=== PATIENT | male | born 1960 | race Caucasian/White ===

== ENCOUNTER 2019-01-07 14:45 | Emergency (ER) | payer OTHER ==
[~2019-01-07] VITALS: Ht 177.8 cm; Wt 72.6 kg
[2019-01-07 15:47] LABS: ABSOLUTE NEUTROPHILS 11.7 thou/uL (1.4-8.2); BASOPHILS 0.5 % (0.0-2.0); EOSINOPHILS 2.1 % (0.0-3.0); HEMATOCRIT 40.3 % (42.0-52.0); HEMOGLOBIN 13.6 gm/dL (14.0-18.0); LYMPHOCYTES 8.7 % (24.0-44.0); MCHC 33.7 g/dL (28.0-37.0); MCV 80.1 fL (80.0-100.0); MONOCYTES 7.9 % (1.0-8.0); PLATELET COUNT 394 thou/uL (150-400); POLYS 80.8 % (36.0-66.0); RBC 5.03 mil/uL (4.50-6.00); RDW 14.5 % (10.5-14.5); WBC 14.5 thou/uL (4.0-11.0)
[2019-01-07 16:04] LABS: CALCIUM 9.5 mg/dL (8.5-10.1); CREATININE 1.1 mg/dL (0.7-1.3)
[2019-01-07 16:08] LABS: ALBUMIN 3.3 g/dL (3.4-5.0); TOTAL BILIRUBIN 0.9 mg/dL (<0.1-1.0); TOTAL PROTEIN 8.8 g/dL (6.4-8.2)
[2019-01-07] MEDS ORDERED: NAPROSYN500 MG PO (17:04)
[2019-01-07] MEDS ORDERED: DOXYCYCLINE 10100 MG PO (17:04)
[2019-01-07 17:30] VITALS: BP 121/62
== END 2019-01-07 17:30 | disposition left against medical advice (07) ==
LOC: ER 14:45
PROVIDERS: Physician Assistant
DX: E11.621 Type 2 diabetes mellitus with foot ulcer (principal); L97.529 Non-pressure chronic ulcer of other part of left foot with unspecified severity; A41.9 Sepsis, unspecified organism; R65.20 Severe sepsis without septic shock; I10 Essential (primary) hypertension; Z86.73 Personal history of transient ischemic attack (TIA), and cerebral infarction without residual deficits; F17.210 Nicotine dependence, cigarettes, uncomplicated; Z88.8 Allergy status to other drugs, medicaments and biological substances

== ENCOUNTER 2019-01-08 12:05 | Inpatient (IN) | payer OTHER ==
[~2019-01-08] VITALS: Ht 177.8 cm; Wt 75.3 kg
[~2019-01-08 12:05] MED LIST: DOXYCYCLINE 10100 MG PO; NAPROSYN500 MG PO
[2019-01-08 12:06] VITALS: BP 136/71
[2019-01-08 12:31] LABS: RBC 5.26 mil/uL (4.50-6.00)
[2019-01-08 12:33] LABS: HEMATOCRIT 42.2 % (42.0-52.0); HEMOGLOBIN 14.1 gm/dL (14.0-18.0); MCH 26.9 pg (26.0-34.0); MCHC 33.5 g/dL (28.0-37.0); MCV 80.1 fL (80.0-100.0); RDW 14.5 % (10.5-14.5); WBC 24.5 thou/uL (4.0-11.0)
[2019-01-08 13:26] LABS: ABSOLUTE NEUTROPHILS 17.4 thou/uL (1.4-8.2); ATYPICAL LYMPHS 1 %
[2019-01-08 13:27] LABS: ANISOCYTOSIS SLIGHT; PLATELET COUNT 389 thou/uL (150-400)
[2019-01-08 13:28] LABS: CALCIUM 8.9 mg/dL (8.5-10.1); CREATININE 0.7 mg/dL (0.7-1.3); POTASSIUM 3.4 mmol/L (3.5-5.1)
[2019-01-08 13:33] LABS: ALBUMIN 2.4 g/dL (3.4-5.0); TOTAL BILIRUBIN 0.9 mg/dL (<0.1-1.0); TOTAL PROTEIN 7.4 g/dL (6.4-8.2)
[2019-01-08 14:05] VITALS: BP 139/61
--- NOTE | 2019-01-08 14:17 | NUR ---
FIRST ATTEMPT TO CALL REPORT-NURSE BUSY IN [facility] ROOM
[2019-01-08 17:18] LABS: INR 1.1; PROTIME 11.4 Seconds (9.3-11.4)
--- NOTE | 2019-01-08 18:26 | NUR ---
58 YO MALE ADMITTED FROM ED TO 350. A&OX4, L POST FOOT SWOLLEN, RED AND WARM TO TOUCH, PLANTER ASPECT OF FOOT HAS A DEEP DIABETIC ULCER. ORIENTED PT TO ROOM/ CALL LIGHT. IV PAIN MED AND ABX GIVEN. ORDERED PT A DINNER TRAY, WILL BE NPO AFTER MN.
[2019-01-08 19:46] VITALS: BP 151/82
[2019-01-09] VITALS (8 sets, daily range): BP systolic 145–166; BP diastolic 65–86
[2019-01-09 05:08] LABS: HEMATOCRIT 35.8 % (42.0-52.0); MCH 26.3 pg (26.0-34.0); MCHC 32.9 g/dL (28.0-37.0); MCV 79.8 fL (80.0-100.0); RBC 4.49 mil/uL (4.50-6.00); RDW 14.5 % (10.5-14.5)
[2019-01-09 05:11] LABS: HEMOGLOBIN 11.8 gm/dL (14.0-18.0); WBC 8.6 thou/uL (4.0-11.0)
[2019-01-09 05:21] LABS: CALCIUM 8.1 mg/dL (8.5-10.1); CREATININE 0.7 mg/dL (0.7-1.3)
--- NOTE | 2019-01-09 05:55 | NUR ---
FOLLOWING POC FOR PT WITH IVPB ANTIBIOTICS AND FLUIDS. DC'D COUPLE ORDERS OF FLUIDS DUE TO DUPLICATE NATURE. REMOVED DRESSING ON FOOT SO ULTRASOUND COULD BE COMPLETED AND REDRESSED. PT USES CALL LIGHT TO EXPRESS HIS NEEDS WHEN NEEDING PAIN MEDICATION. IV TEAM MIGHT WANT TO BE CONSULTED PT IS HARD STICK AND IV LOCATION IS IN [facility]. ORTHO CONSULT IS SCHEDULED FOR THIS AM. PT HAS BEEN NPO SINCE 2400.
[2019-01-09] MEDS ORDERED: LISINOPRIL40 MG PO (11:44)
[2019-01-09] MEDS ORDERED: CARVEDILOL12.5 MG PO (11:45)
[2019-01-09] MEDS ORDERED: NORVASC5 MG PO (11:45)
[2019-01-09] MEDS ORDERED: ALPHA LIPOIC A600 M1 PO (11:46)
[2019-01-09] MEDS ORDERED: SERTRALINE HCL25 M1 PO (11:47)
[2019-01-09] MEDS ORDERED: LIPITOR10 MG PO (11:47)
[2019-01-09] MEDS ORDERED: CLOPIDOGREL75 MG PO (11:50)
[2019-01-09] MEDS ORDERED: PROTONIX40 M1 PO (11:51)
[2019-01-09] MEDS ORDERED: HYDROXYZINE HCL25 M1 PO ×2 (11:52→11:53)
[2019-01-09] MEDS ORDERED: PAXIL10 MG PO (11:53)
--- NOTE | 2019-01-09 14:48 | NUR ---
INITIAL ASSESSMENT: SW reviewed chart and spoke with nursing and attending physician. Pt was admitted from home due to left foot ulcer. Ortho consulted. [facility]. Pt will have toe amputation and possible further debridement. SW met with pt at bedside. Introduced role of SW. Pt is alert/orientated x 4. Pt reports he lives at home with his . Pt's is currently out of town. Prior to admission, pt was independent with ADLs. No hx of HH services or SNF/Rehab placement. Pt confirms that he does not have health insurance. SW explained process for sending referral to [employer] to assist with Medicaid application and financial assistance paperwork. Pt does not have a PCP. SW will provide pt with Health Resource Guide and prescription discount card. CHAMP is following to assist as needed with discharge planning.
--- NOTE | 2019-01-09 14:53 | NUR ---
Patient admitted for diabetic foot wound, cellulitis, severe sepsis, osteomyelitis. Amputation scheduled for this evening. RD consult for wound. Chart was reviewed. Blood sugars controlled at home per patient report of sugars usually ranging from 120-140. Sugars have been uncontrolled recently due to not taking diabetic medication x3 weeks. NPO at this time. Patient at low nutritional risk, will follow up 01/13/19 for further assessment.
--- NOTE | 2019-01-09 18:53 | NUR ---
PATIENT IS CURRENTLY IN SURGERY FOR LEFT GREAT TOE AMPUTATION. HE IS ALERT ORIENTED X4. DID HAVE MEDICAITONS ADMINISTERED FOR PAIN. WILL CONT WITH PLAN OF CARE.
--- NOTE | 2019-01-09 23:15 | HC ---
[facility] [address] [place] [address] CONSULTATION Name: DOMINGA GREEN Room #: 350-P ADM IN M.R.#: [id number] Admission: 01/08/19 ������������������ Attend Phys: Preet Dalal MD Discharge: ������������������ Date of : 64 Report #: [id number] THIS REPORT FOR: //name// CC: [facility] physician/PCP Preet Dalal DATE OF SERVICE: 01/08/2019 REASON FOR CONSULTATION: I was asked to evaluate left diabetic foot infection. HISTORY OF PRESENT ILLNESS: The patient is a 58-year-old with history of diabetes and hypertension who has a known diabetic foot infection the patient states for the last 9 months. He first noticed a small callus in the region. This then developed into an ulcer. Over the last week, he has noticed marked worsening with erythema involving the second left toe and increased drainage along with pain. No fever, chills or sweats. No nausea, vomiting or diarrhea. He has been out of his diabetic treatment for last month for the patient could not afford his medications. He lives in [place] and was visiting his family in [place] and planning to live here. REVIEW OF SYSTEMS: Denies any cardiopulmonary, GI or complaints. He does have peripheral neuropathy. PAST MEDICAL HISTORY: Diabetes, stroke, pancreatitis and hypertension. MEDICATIONS: Naprosyn and doxycycline that were started yesterday. ALLERGIES: PROCAINE. FAMILY HISTORY: Noncontributory. SOCIAL HISTORY: He is a smoker of cigarettes. No significant alcohol intake. REVIEW OF SYSTEMS: Ten-point review was negative other than what is described above. PHYSICAL EXAMINATION: VITAL SIGNS: He is afebrile and hemodynamically stable. GENERAL: He is alert, cooperative and pleasant, in no acute distress. EYES: Without scleral icterus. MOUTH: Without mucositis. NECK: Supple. LUNGS: Clear. HEART: Regular without murmur. ABDOMEN: Soft and nontender. SKIN: Unremarkable with no rashes or decubitus other than what is described on [facility] [address] [place] [address] CONSULTATION Name: DOMINGA GREEN Room #: [address] [place] [address] IN M.R.#: [id number] Admission: 01/08/19 ������������������ Attend Phys: Preet Dalal MD Discharge: ������������������ Date of : 64 Report #: [id number] his extremity examination. No palpable adenopathy. EXTREMITIES: Left lower extremity had an ulceration to the plantar aspect of his second metatarsal head region. There was surrounding erythema and marked tenderness in this area. He had 1+ edema in the foot. There was erythema to the dorsum of his foot as well with swelling, erythema and some ecchymosis involving the left second toe. This whole area was very tender to palpation. He had decreased sensation in his toes. Pulses were palpable dorsalis pedis and posterior tibial. Strength in his upper and lower extremities was normal. LABORATORY STUDIES: Sodium 130, potassium 3.4, bicarbonate 23 and creatinine 0.7. Liver function test normal. Hemoglobin 14.1, WBC 24.5 and platelet count 389,000, 71% segs, 15% lymphs and 10% monocytes. Culture of the wound and blood are pending. MRI scan of the foot shows evidence of osteomyelitis involving the second metatarsal proximal and middle phalanx. There was a 2.5 cm gas filled fluid collection dorsum of the soft tissues at the level of second proximal phalanx consistent with an abscess. There is edema throughout the plantar musculature of the forefoot. IMPRESSION: A 58-year-old with underlying diabetes and peripheral vascular disease with diabetic foot infection and osteomyelitis of his second toe and metatarsal. This would typically be a polymicrobial infection. He does have pulses palpable in his feet; therefore, suspecting small vessel vascular disease. RECOMMENDATIONS: We will continue IV antibiotic therapy with vancomycin and Zosyn, pending culture results. Orthopedic surgery evaluation for debridement and suspected need for ray amputation. ��������������������������������������������� <ELECTRONICALLY SIGNED> ���������������������������������������� By: Jose Rafael Jiang MD ��������������������������������������������� 01/09/19 2315 1714 [id number] Jose Rafael Jiang MD /nt
[2019-01-10 05:35] VITALS: BP 140/63
[2019-01-10 05:38] LABS: HEMATOCRIT 36.5 % (42.0-52.0); MCH 26.2 pg (26.0-34.0); MCV 79.4 fL (80.0-100.0); RBC 4.6 mil/uL (4.50-6.00); RDW 14.1 % (10.5-14.5); WBC 8.4 thou/uL (4.0-11.0)
[2019-01-10 05:49] LABS: CALCIUM 8.1 mg/dL (8.5-10.1); CREATININE 0.7 mg/dL (0.7-1.3); POTASSIUM 3.1 mmol/L (3.5-5.1)
--- NOTE | 2019-01-10 06:40 | NUR ---
Arrived from surgery around 2009. Hydrocodone x1 tab given for pain with little relief of left foot/toe pain. Morphine IV given with good relief. He slept fair during the night then requested hydrocodone x2 tabs this am with better relief of pain. Left foot elevated with pillows and ice pack provided. Afebrile. IV on left thumb clotted off. New IV placed on left FA for IV ABT. Bed alarm for safety. Tolerated diet with no nausea or vomiting. VSS. Will continue to monitor.
--- NOTE | 2019-01-10 08:05 | O ---
[facility] [place] [address] [place] [address] OPERATIVE REPORT Name: DOMINGA GREEN Room #: 350-P ADM IN M.R.#: [id number] Admission: 01/08/19 ������������������ Attend Phys: Preet Dalal MD Discharge: ������������������ Date of : 64 Report #: [id number] THIS REPORT FOR: //name// CC: [facility] physician/PCP Preet Dalal DATE OF SERVICE: 01/09/2019 PREOPERATIVE DIAGNOSIS: Left foot second metatarsal osteomyelitis. POSTOPERATIVE DIAGNOSIS: Left foot second metatarsal osteomyelitis. PROCEDURE: Left foot second ray amputation. SURGEON: Sathya Song MD. ANESTHESIA: General. ESTIMATED BLOOD LOSS: Minimal. DRAINS: One Eureka drain was placed. COMPLICATIONS: There were no complications. DESCRIPTION OF PROCEDURE: The patient was brought to the operating room where he was placed under general anesthesia. Once under adequate general anesthesia, his left lower extremity was elevated and a tourniquet placed to 300 mmHg. A racquet shaped incision was made about the second toe with sharp dissection directly down to the proximal phalanx and metatarsal of the second toe. Exposure was made of the second metatarsal and a sagittal saw was then used to transect the second metatarsal. This was then elevated from the foot and sharply released from the surrounding soft tissue with a 15 blade. The toe and metatarsal were then subsequently removed completely. The wound was irrigated copiously and closed over a Eureka drain with 2-0 nylon suture in a simple stitch manner. Once complete, the wound was dressed with Xeroform, 4 x 4s, and a sterile soft compressive dressing was placed. Tourniquet was let down at 15 minutes. Toes were pink and warm with good capillary refill. There were no complications from the procedure. The patient tolerated the procedure well and was sent to recovery room without incident. ��������������������������������������������� <ELECTRONICALLY SIGNED> ���������������������������������������� By: Sathya Song MD ��������������������������������������������� 01/10/19 0805 25 40 Sathya Song MD /nt
--- NOTE | 2019-01-10 12:00 | NUR ---
SW reviewed chart and spoke with attending physician. Pt is POD #1 of toe amputation. Pt to have arteriogram per IR today. Awaiting cultures at this time. No weekend discharge anticipated. Pt may need assistance with medications at time of discharge. CHAMP is following to assist as needed with discharge planning.
[2019-01-10 15:47] VITALS: BP 110/63
--- NOTE | 2019-01-10 17:01 | NUR ---
WOUND CONSULT: PT. WAS SEEN TODAY BY DR. BIRCH AND MYSELF. PT. HAS SURGERY YESTERDAY BY DR. KRISHNA DUE TO OSTEO FROM A CHRONIC DIABETIC ULCER TO THE PLANTER SURFACE OF HIS LEFT FOOT. PT. HAD HIS LEFT FOOT 2ND TOE AMPUTATED AND THE INCSION LINE IS WELL APPROXIMATED AT THIS TIME. RECOMMENDATIONS: WOUND CARE TO LEFT FOOT: GENTLY CLEANSE AREA WITH WOUND CLEANSER OR NORMAL SALINE, APPLY AQUACEL AG TO WOUND BED, COVER WITH ABD, WRAP WITH KERLIX, SECURE WITH DG, COMPLETE CARES DAILY AND PRN DUE TO SOILAGE. PT. AND STAFF NURSE WERE INSTRUCTED ON PLAN OF CARE.
--- NOTE | 2019-01-10 17:52 | NUR ---
ASSUUMED PATIENT CARE AT 0700. A/O X4. PLEASEANT. PATIENT LISA BLE ARTERIOGRAM TODAY, BACK TO ROON AT 1400. RGIHT GROINE ACCESS NO HEMOTOMA, NO BLEEDING. WOUND CARE NURSE CHANGED LEFT FOOT DRESSING. PATIENT ON REGLUAR DIET. MED PAIN GIVEN NEEDS. PROGRESSING TOWARDS POC GOALS.
[2019-01-10 20:08] VITALS: BP 110/55
[2019-01-11 04:28] VITALS: BP 143/71
[2019-01-11 07:19] VITALS: BP 151/65
--- NOTE | 2019-01-11 07:38 | NUR ---
patient is alert and oreinted. patient is has boot for ambulation. patient is achs. patients lbm was the 12th. mirlax was given. patients groin site is clean dry and intact. patients pain is treated with pain medication wcm. patient is resting comfortabley in bed. patient is progressing to goals
[2019-01-11 15:00] VITALS: BP 120/67
--- NOTE | 2019-01-11 15:10 | NUR ---
WENT TO 3W AND BROUGHT PATIENT DOWN TO ROOM 222. REPORT GIVEN BY NURSE KASSIDY. RESUMED PATIENTS VANCOMYCIN IVPB. PATIENT SETTLED IN ROOM WITH CALL LIGHT AND BELONGINGS WITHIN REACH.
--- NOTE | 2019-01-11 17:12 | NUR ---
PATIENT TRANSFERED TO SENIOR SUITES. HE WAS ALERT ORIENTED X3. UP AND ABOUT WITH A WALKER. NO COMPLAINT OF PAIN NOTED. WILL CONT WITH PLAN OF CARE.
[2019-01-11 19:34] VITALS: BP 119/63
--- NOTE | 2019-01-12 04:54 | NUR ---
ASSUMED CARE OF PATIENT AT 1899. VSS. ASSESSMENT COMPLETED AT 2109 AND IS DOCUMENTED. PRN NORCO GIVEN X1 FOR C/O RIGHT FOOT PAIN WITH DESIRED EFFECT ACHIEVED. VANCO INFUSED INTO RIGHT FA PIV WITHOUT COMPLICATION. ZOSYN CURRENTLY INFUSING. PT SLEPT SOUNDLY THROUGHOUT THE NIGHT WITH NO ACUTE DISTRESS NOTED OR REPORTED. PT CALLS OUT APPROPRIATELY. BED LOCKED AND IN LOWEST POSITION. WCTM.
--- NOTE | 2019-01-12 05:05 | NUR ---
THIS NURSE AGREES WITH ASSESSMENT AND NOTES BY PERFUSIONIST ON THIS PATIENT.
[2019-01-12 06:54] LABS: HEMATOCRIT 34.9 % (42.0-52.0); HEMOGLOBIN 11.7 gm/dL (14.0-18.0); MCH 26.8 pg (26.0-34.0); MCHC 33.6 g/dL (28.0-37.0); MCV 79.7 fL (80.0-100.0); RBC 4.38 mil/uL (4.50-6.00); RDW 14.3 % (10.5-14.5)
[2019-01-12 07:14] LABS: CALCIUM 8.2 mg/dL (8.5-10.1); CREATININE 0.8 mg/dL (0.7-1.3); POTASSIUM 3.7 mmol/L (3.5-5.1)
[2019-01-12 07:45] VITALS: BP 146/83
--- NOTE | 2019-01-12 11:16 | NUR ---
ASSUMED CARE OF PATIENT THIS MORNING. PATIENT IS A&OX4. HE IS UP AD CAIN AND USES A WALKER FOR AMBULATING. PATIENT WEARS A HEEL BEARING BOOT ON HIS LEFT FOOT. PATIENT IS S/P 2ND TOE AMPUTATION ON 01/09/19, DRESSING IS CURRENTLY C/D/I. HE HAS TWO IV ACCESS SITES. ONE ON THE LEFT AC WHICH ZOSYN IS CURRENTLY RUNNING THROUGH AND THE OTHER IS ON THE R. FOREARM S.L. HE IS A DIABETIC, ACCUCHECK IS AC/HS. HE RECEIVED 4 UNITS OF INSULIN THIS MORNING FOR A GLUCOSE READING OF 241. STILL AWAITING PATIENT'S LAB CULTURES TO DETERMINE WHEN HE WILL BE DISCHARGED. PATIENT IS CURRENTLY RESTING IN BED WITH CALL LIGHT WITHIN REACH. HE CALLS OUT APPROPRIATELY FOR ASSISTANCE.
--- NOTE | 2019-01-12 14:14 | NUR ---
I AGREE WITH NURSING ASSESSMENT DONE BY SAMARA/STACY.
[2019-01-12 16:51] VITALS: BP 131/71
[2019-01-12 19:20] VITALS: BP 174/95
[2019-01-12 19:22] VITALS: BP 142/76
[2019-01-13 07:22] VITALS: BP 168/85
--- NOTE | 2019-01-13 09:51 | NUR ---
ASSUMED CARE OF PATIENT THIS MORNING. PATIENT IS A&OX4. HE IS UP AD CAIN. HE HAS A LEFT 2ND TOE AMPUTATION AND WEARS A BOOT. DRESSING TO THE LEFT FOOT IS C/D/I. HE ALSO HAS A DRESSING TO THE RIGHT GROIN C/D/I. HE HAS TWO IV'S ONE IN THE RIGHT AC SALINE LOCKED AND THE OTHER IN THE LEFT FOREARM. BREATH SOUNDS ARE CLEAR AND HE IS ON ROOM AIR. LAST BOWEL MOVEMENT WAS 01/12/19. NO ABNORMAL ASSESSMENT FINDINGS. PATIENT WILL NOT BE DISCHARGED YET, ADDITIONAL CULTURES ARE NEEDED FROM LEFT FOOT. PATIENT RECEIVED PAIN MEDICATION THIS MORNING FOR FOOT PAIN 06/04 AND REASSESSED THE PATIENT'S PAIN, HE WAS SLEEPING. PATIENT IS CURRENTLY RESTING IN BED WITH CALL LIGHT WITHIN REACH. PATIENT CALLS OUT APPROPRIATELY FOR ASSISTANCE.
--- NOTE | 2019-01-13 10:14 | NUR ---
Nutrition: pt admit with diabetic foot wound, cellulitis, sepsis, osteo. S/P 2nd toe amputation. BG usually controlled at home, 120-140 per pt but recently uncontrolled past several weeks due to not taking DM medication. Currently on heart healthy diet with BG 168-301, will add carb controlled. Good appetite reported, protein needs reviewed. Pt agreeable to Jony BID for wound healing. Continue low nutrition risk.
--- NOTE | 2019-01-13 16:08 | NUR ---
Following for d/c planning needs. Received order from physician to arrange IVAB outpatient at [facility]. Spoke with Director of Case Management and will await direction re: OP at [facility]. Pt states he lives in an extended stay motel and his family from [place] is paying for it. Pt is not working. Pt said he has transportation and would be able to come to the hospital daily for IVAB. Will remain available to assist as needed.
--- NOTE | 2019-01-13 16:18 | NUR ---
CONSULTED TO PLACE A PICC FOR PATIENT FOR ANTIBIOTICS POST DISCHARGE. THE PATIENT EXPRESSED CONFUSION TO HOW HE WAS GOING TO GET OUTPATIENT IV ANTIBIOTICS AFTER DISCHARGE. DISCUSSED CONCERNS WITH THE STAFF NURSE AND ARGON TESTER. THE PATIENT HAS 2 PERIPHERAL IV LINES FOR IV INFUSION AND WILL NOT BE DISCHARGED UNTIL CLARIFICATION HAS BEEN COMPLETED. ONCE IT IS CLARIFIED WE WILL RETURN TO PLACE PICC PRIOR TO DISCHARGE.
--- NOTE | 2019-01-13 16:35 | NUR ---
WOUND FOLLOW UP: PT. WAS SEEN TODAY BY DR. BIRCH AND MYSELF. WOUND IS CLINICALLY BETTER TODAY AND PT. IS IN GOOD SPIRITS. RECOMMENDATIONS: CONTINUE WITH CURRENT PLAN OF CARE. PT. AND STAFF NURSE WERE INSTRUCTED ON PLAN OF CARE.
[2019-01-13 18:41] VITALS: BP 147/76
--- NOTE | 2019-01-14 04:26 | NUR ---
PATIENT ALERT AND ORIENTED X4. C/O MILD PAIN BUT DOES NOT WANT ANYTHING FOR IT. ACCUCHECK WAS 272, RECIEVED 6 UNIT LISPRO INSULIN WELL 20 UNIT OF LANTUS. DRESSING ON L LOWER EXT D/I. SLEPT MOST OF NIGHT.
[2019-01-14 08:28] VITALS: BP 146/82
--- NOTE | 2019-01-14 08:32 | NUR ---
ASSUMED PT CARE AT 0700. ASSESSMENT COMPLETED AND IS CHARTED. PT AWAKE, ALERT/ORIENTED X4. REPORTS NO PAIN TO FOOT. NEUROVASCULAR ASSESSMENT INTACT TO LEFT FOOT. DRESSING IS CDI. NO NEW CONCERNS OR COMPLAINTS AT THIS TIME. WILL CONTINUE WITH CURRENT CARE.
--- NOTE | 2019-01-14 12:50 | NUR ---
CHAMP reviewed chart and spoke with nursing and attending physician. Pt is medically stable for discharge home. Pt will need IV abx for 4-6 weeks per ID. Order written for ertapenem daily. CHAMP discussed case with Director of Case Mgmt, who states she has been in contact with [facility] pharmacy. Pt may qualify for an assistance program for the ertapenem. Pt does not have a PICC line in yet. CHAMP met with pt at bedside to discuss discharge plan and possible need for outpatient IV abx. Pt is aware and agreeable with coming to [facility] if needed for outpatient infusion. Pt will be staying in a hotel when discharged, and states he may need transportation to the hotel. Awaiting input from ID at this time. CHAMP is following to assist as needed with discharge planning.
[2019-01-14 15:03] VITALS: BP 146/82
[2019-01-14] MEDS ORDERED: LIPITOR10 MG PO (15:13)
[2019-01-14] MEDS ORDERED: CLOPIDOGREL75 MG PO (15:13)
[2019-01-14] MEDS ORDERED: CARVEDILOL12.5 MG PO (15:17)
[2019-01-14] MEDS ORDERED: NORVASC5 MG PO (15:22)
[2019-01-14] MEDS ORDERED: LISINOPRIL40 MG PO (15:22)
[2019-01-14] MEDS ORDERED: LANTUS100 UNIT/M SUBQ (15:23)
[2019-01-14] MEDS ORDERED: PROTONIX40 M1 PO (15:23)
[2019-01-14] MEDS ORDERED: NOVOLOG100 UNIT/1 SUBQ (15:23)
[2019-01-14] MEDS ORDERED: ERTAPENEM1 GM IM (15:25)
[2019-01-14 15:35] VITALS: BP 146/82
[2019-01-14 15:38] VITALS: BP 146/82
--- NOTE | 2019-01-14 16:03 | NUR ---
RIGHT BASILIC VESSEL ACCESSED FOR 4 [place] SINGLE LUMEN PICC. LINE PRE-TRIMMED TO 43 CM AND ADVANCED TO THE ZERO RUDDY WITH NO RESISTANCE MET. UPPER ARM CIRCUMFERENCE ABOVE INSERTION SITE= 10 3/4". SHERLOCK MAGNET AND 3CG UNAVAILABLE FOR TIP TERMINATION CONFIRMATION. POST PROCEDURE CXR SHOWS 3-4 CM BELOW CRSITINA. GUIDEWIRE REMOVED, LINE FLUSHED AND INSERTION SITE DRESSED. REPORT GIVBEN TO Karli MARTELL RN.
[2019-01-14] MEDS ORDERED: HYDROCODONE-AP1 EAC6 PO (16:10)
[2019-01-14 16:13] VITALS: BP 146/82
--- NOTE | 2019-01-14 17:28 | NUR ---
DISCHARGE INSTRUCTIONS GIVEN. PICC LINE IN PLACE. DISCHARGED PT IN STABLE CONDITION TO HOME VIA WHEELCHAIR AND VOLUNTEER TRANSPORT.
[2019-01-15] MEDS ORDERED: ERTAPENEM1 GM IV (14:08)
--- NOTE | 2019-01-16 12:10 | PATH ---
[facility] [address] [place] [address] PATHOLOGY RPT PROCEDURE Name: MAURICE GREEN Room #: 222-P DIS IN M.R.#: [id number] ������������������ Admission: 01/08/19 ������������������ Date of : 64 Discharge: 01/14/19 Report #: [id number] Path Case #: [id number] [facility] Accession Number: [id number] . 01 Material submitted: . LEFT SECOND RAY AMPUTATION . 01 Clinical history: . Severe sepsis. . 02 Diagnosis: Left second ray, amputation: - Marked acute inflammation extending into subcutaneous tissue and underlying bone associated with osteonecrosis, consistent with acute osteomyelitis. - Margin viable and unremarkable. . (IUV:mml; 01/14/2019) QLM/01/14/2019 . 02 Electronically signed: . Trinidad Grimaldo MD, Pathologist NPI- [id number] . 01 Gross description: . Received in formalin labeled "Maurice Green, left second ray amputation" is a transmetatarsal toe amputation specimen which measures 11.6 x 2.6 x 2.3 cm. Skin is present on the distal third of the specimen, measuring over a 3.5 x 2.6 x 2.3 cm area. A palmer-white unremarkable nail is present measuring 1.2 x 0.8 x 0.2 cm. The toe skin is slightly palmer-murillo and discolored at the proximal aspect without a definitive lesion or ulceration. The skin and soft tissue resection margin is inked black. The soft tissue surrounding the proximal phalanx at the junction with the skin is slightly murillo-palmer discolored. The metatarsal bone and attached soft tissue are grossly unremarkable, with the proximal margin being smooth and consistent with a surgical resection margin (inked black). Can Top Setter sections are submitted as follows: A1 proximal margin, en face (decalcified) A2-A4 corporate sales representative sections of distal toe with skin (A4 decalcified) A4 corporate sales representative cross sections of proximal phalanx (decalcified) [place] 01/11/2019) SYC/SYC . 02 Pathologist provided ICD-10: M86.172, M87.872 . 02 [facility] [place] [address] PATHOLOGY RPT PROCEDURE Name: MAURICE GREEN Room #: 222-P DIS IN M.R.#: [id number] ������������������ Admission: 01/08/19 ������������������ Date of : 64 Discharge: 01/14/19 Report #: [id number] Path Case #: [id number] Specimen Comment: A courtesy copy of this report has been sent to Specimen Comment: [phone], . Specimen Comment: Report sent to / DR STROUD Specimen Comment: A duplicate report has been generated due to demographic updates. Performed at: [address], [place] [id number] MD Damion Richter MD Phone: [phone] Performed at: [address] [id number] MD Trinidad Grimaldo MD Phone: [phone]
== END 2019-01-14 17:29 | disposition home or self-care (01) | DRG 854 ==
LOC: ER 12:05 → EROBS 13:36 → 3W 14:36 → SICU 01-11 14:52 → ENTRNSPT 01-14 17:17 → SICU 01-14 17:29
PROVIDERS: Orthopaedic Surgery Foot and Ankle Surgery; Physician Assistant; ADMIT Hospitalist
PROC: 0Y6N0ZB Detachment at Left Foot, Partial 2nd Ray, Open Approach (ICD-10-PCS; principal; 2019-01-09)
PROC: B41D1ZZ Fluoroscopy of Aorta and Bilateral Lower Extremity Arteries using Low Osmolar Contrast (ICD-10-PCS; 2019-01-10)
PROC: B4181ZZ Fluoroscopy of Bilateral Renal Arteries using Low Osmolar Contrast (ICD-10-PCS; 2019-01-10)
PROC: B41C1ZZ Fluoroscopy of Pelvic Arteries using Low Osmolar Contrast (ICD-10-PCS; 2019-01-10)
PROC: B41B1ZZ Fluoroscopy of Other Intra-Abdominal Arteries using Low Osmolar Contrast (ICD-10-PCS; 2019-01-10)
PROC: 05HY33Z Insertion of Infusion Device into Upper Vein, Percutaneous Approach (ICD-10-PCS; 2019-01-10)
DX: A41.9 Sepsis, unspecified organism (principal); L03.116 Cellulitis of left lower limb; M86.8X7 Other osteomyelitis, ankle and foot; R65.20 Severe sepsis without septic shock; E11.69 Type 2 diabetes mellitus with other specified complication; E11.621 Type 2 diabetes mellitus with foot ulcer; I10 Essential (primary) hypertension; F17.210 Nicotine dependence, cigarettes, uncomplicated; L97.529 Non-pressure chronic ulcer of other part of left foot with unspecified severity; E11.51 Type 2 diabetes mellitus with diabetic peripheral angiopathy without gangrene; E11.42 Type 2 diabetes mellitus with diabetic polyneuropathy; E78.5 Hyperlipidemia, unspecified; Z82.49 Family history of ischemic heart disease and other diseases of the circulatory system; Z88.8 Allergy status to other drugs, medicaments and biological substances; Z86.73 Personal history of transient ischemic attack (TIA), and cerebral infarction without residual deficits; Z91.19 Patient's noncompliance with other medical treatment and regimen
CPT/HCPCS: 10879; 15002; 27000; 50010; 50101; 50386; 50951; 56525; 56526; 57091; 62110; 62900; 70005

== ENCOUNTER → 2019-01-15 | Outpatient (CLI) | payer OTHER ==
[~2019-01-15] MED LIST changes: +ALPHA LIPOIC A600 M1 PO; +CARVEDILOL12.5 MG PO; +CLOPIDOGREL75 MG PO; +ERTAPENEM1 GM IM; +ERTAPENEM1 GM IV; +HYDROCODONE-AP1 EAC6 PO; +HYDROXYZINE HCL25 M1 PO; +LANTUS100 UNIT/M SUBQ; +LIPITOR10 MG PO; +LISINOPRIL40 MG PO; +NORVASC5 MG PO; +NOVOLOG100 UNIT/1 SUBQ; +PAXIL10 MG PO; +PROTONIX40 M1 PO; +SERTRALINE HCL25 M1 PO
[2019-01-15 14:00] VITALS: BP 156/79
[2019-01-15 14:05] VITALS: BP 156/79
--- NOTE | 2019-01-15 14:05 | NUR ---
HERE FOR 1ST OUTPATIENT VISIT FOR DAILY IV ERTAPENEM. JUST DISMISSED LAST EVENING FROM THIS HOSPITAL. SEEMS TO GRASP UNDERSTANDING OF PLAN. REVIEWED WHAT TO EXPECT, NEED TO COME DAILY EVEN OVER THE WEEKEND, WILL SEE DR. RUCKER HERE IN THE CLINIC ON SUNDAY AND HAVE HIS LABS DRAWN ON THE SUNDAY PRIOR. REVIEWED INSTRUCTIONS TO KEEP THE PICC LINE DRESSING PROTECTED AND DRY. PT DID GET IT MOIST WITH BATHING SO DRESSING CHANGED TODAY. SITE LOOKS GOOD. LEFT FOOT HAS BEEN VERY PAINFUL AND HAS BLED THROUGH DRESSINGS AND STOCKING. WOUND CARE TEAM CAME TO SEE PT (BRIANDA MOSES AND DR. BIRCH) AND DRESSING CHANGE DONE BY THEM TODAY. JOSUÉ PLANS TO RETURN AGAIN TOMORROW TO DO DRESSING CHANGE. PT'S INNER LEFT FOREARM REDDENED, SLIGHTLY PAINFUL AND CORDING NOTED WHERE IV WAS DISCONTINUED YESTERDAY. AREA CIRCLED SO CAN BE EVALUATED DAILY. ENCOURAGED PT TO PLACE WARM, MOIST HEAT ON THIS AREA A FEW TIMES A DAY IF HE CAN. STATES HE CAN EASILY DO THIS. PT WAS OUT OF MOST MEDICATIONS. HE APPARENTLY HAS TRAVELED HERE FROM [place] IN SEARCH OF A JOB. HAS NO PCP HERE IN [place]. MOST OF THE SCRIPTS THAT CASE MANAGEMENT IS VOUCHING FOR HAVE BEEN FILLED AND PT TAKEN TO OUR OUTPATIENT PHARMACY BY THE VOLUNTEER TO PRODUCTION ENGINEER TRACK WHAT WAS FILLED. REMAINDER SHOULD BE AVAILABLE BY TOMORROW. PT DID SAY THAT HE HAS HIS INSULIN AND TOOK BOTH HIS LONG ACTING AND SHORT ACTING INSULIN'S PRESCRIBED AND IS CHECKING HIS BLOOD SUGARS ABOUT 3X DAILY. PT DENIES ANY FEVER/CHILLS, N/V/DIARRHEA OR ANY CONCERNS OTHER THAN PAIN IN HIS LEFT FOOT. SHOULD BE ABLE TO START ON HIS PAIN MED ONCE HE GETS HIS SCRIPTS PICKED UP. PT TOLERATED ERTAPENEM INFUSION WITHOUT INCIDENT. DISMISSED IN STABLE CONDITION. HAS A FRIEND IN [place] WILLING TO DRIVE HIM TO ALL APPTS. SCHEDULED TO RETURN HERE AGAIN IN THE MORNING. ALSO SCHEDULED PT'S VISIT WITH DR. TIPTON FOR 01/11 AT 0915.
== END ==
LOC: OPONC 09:38
DX: E11.69 Type 2 diabetes mellitus with other specified complication (principal); M86.8X7 Other osteomyelitis, ankle and foot; E11.628 Type 2 diabetes mellitus with other skin complications; L08.89 Other specified local infections of the skin and subcutaneous tissue
CPT/HCPCS: 95000

== ENCOUNTER → 2019-01-16 | Outpatient (CLI) | payer OTHER ==
[2019-01-16 12:11] VITALS: BP 142/84
--- NOTE | 2019-01-16 12:33 | NUR ---
IN FOR ERTAPENEM FOR LEFT DIABETIC FOOT WOUND, S/P LEFT 2ND TOE AMPUTATION, OSTEOMYELITIS. PATIENT WEARING OPEN TOE TO FOREFOOT BOOT. NO BLEEDING NOTED TO DRESSING. LASHA WITH WOUND CARE CHANGED DRESSING. WOUND LOOKS MUCH BETTER TODAY. PATIENT STATED HE STAYED OFF OF HIS FOOT LAST NIGHT. TOLERATED INFUSION WITHOUT INCIDENT. DENIED N/V, DIARRHEA, FEVER/CHILLS. PATIENT STATED HE ACCIDENTALLY SPILLED HIS PAIN PILLS IN THE SINK AND THEY GOT WET AND SOME OF THEM WENT DOWN THE DRAIN. PATIENT WENT DOWN TO PHARMACY TO SEE WHO PRESCRIBED THEM AND WILL HAVE PHARMACY CHECK ON A REFILL. TO RETURN TOMORROW FOR INFUSION. DISMISSED IN STABLE CONDITION. ALSO LASHA PROVIDED PATIENT WITH A WALKER.
== END ==
LOC: OPONC 06:20
DX: E11.69 Type 2 diabetes mellitus with other specified complication (principal); M86.8X7 Other osteomyelitis, ankle and foot; E11.628 Type 2 diabetes mellitus with other skin complications; L08.9 Local infection of the skin and subcutaneous tissue, unspecified
CPT/HCPCS: 95000

== ENCOUNTER → 2019-01-17 | Outpatient (CLI) | payer OTHER ==
[2019-01-17 10:05] VITALS: BP 127/71
[2019-01-17 10:30] LABS: HEMATOCRIT 36.4 % (42.0-52.0); MCH 26.4 pg (26.0-34.0); MCV 79.9 fL (80.0-100.0); RBC 4.55 mil/uL (4.50-6.00); RDW 14.7 % (10.5-14.5); WBC 7.7 thou/uL (4.0-11.0)
[2019-01-17 10:40] LABS: ALBUMIN 2.7 g/dL (3.4-5.0); POTASSIUM 4.4 mmol/L (3.5-5.1); TOTAL BILIRUBIN 0.4 mg/dL (<0.1-1.0); TOTAL PROTEIN 7.8 g/dL (6.4-8.2)
--- NOTE | 2019-01-17 11:00 | NUR ---
IN FOR DAILY INFUSION. REPORTS DOING WELL, TOLERATING INFUSIONS. DENIES NOTICING FEVER/CHILLS/SWEATS. NO N/V/DIARRHEA. EATING WELL. PAIN MUCH LESS. FEELS USE OF WALKER AND OFF LOADING IS HELPING A LOT. DID TELL ME THAT HE HAD A MISHAP WITH HIS HYDRODOCODONE BOTTLE AND THE PILLS FELL INTO THE SINK. STATES HE VISITED WITH THE PHARMACIST YESTERDAY WHO TOLD HIM HE WOULD NEED TO OBTAIN A NEW SCRIPT FROM DR. STROUD IF NEEDED. PT STATES PAIN IS SO MUCH BETTER HE IS GOING TO TRY TO GO WITHOUT FOR NOW. PICC LINE WITH EXCELLENT BLOOD RETURN, LABS DRAWN TODAY. PT HAS KEPT DRSG D/I. JOSUÉ, WOUND CARE NURSE, CAME BY TO CHANGE DRESSING ON L FOOT AND HAD DR. BIRCH TAKE A PEEK AT IT. PT IS SCHEDULED TO RETURN HERE AGAIN ON SUNDAY MORNING; WILL RECEIVE INFUSION AND SEE DR. RUCKER AT THAT TIME. TOLERATED TODAY'S INFUSION WITHOUT INCIDENT. DISMISSED IN STABLE CONDITION.
== END ==
LOC: OPONC 00:31
PROVIDERS: Specialist
DX: E11.69 Type 2 diabetes mellitus with other specified complication (principal); M86.8X7 Other osteomyelitis, ankle and foot
CPT/HCPCS: 95000

== ENCOUNTER → 2019-01-18 | Outpatient (CLI) | payer OTHER | LOC: OPONC 10:38 | DX: E11.69 Type 2 diabetes mellitus with other specified complication (principal); M86.8X7 Other osteomyelitis, ankle and foot | CPT/HCPCS: 95000 ==

== ENCOUNTER → 2019-01-20 | Outpatient (CLI) | payer OTHER ==
[2019-01-20 10:51] VITALS: BP 136/70
--- NOTE | 2019-01-20 11:31 | NUR ---
IN FOR DAILY ERTAPENEM INFUSION AND TO SEE DR. RUCKER. PATIENT STATED DOING OK. DENIED NAUSEA/VOMITING, FEVER/CHILLS, DIARRHEA. DR. RUCKER VISITED. TO CONTINUE THE SAME AND HE WILL SEE HERE IN CLINIC NEXT SUNDAY. TOLERATED INFUSION WELL WITHOUT INCIDENT. CHANGED PICC DRESSING. RECEIVED GOOD BLOOD RETURN FROM PICC LINE AND FLUSHED EASILY. LASHA, WOUND CARE NURSE CHANGED DRESSING TO LEFT FOOT. LASHA WILL CHANGE DRESSING EVERY --. TO RETURN TOMORROW. DISMISSED IN STABLE CONDITION.
== END ==
LOC: OPONC 00:41
DX: E11.69 Type 2 diabetes mellitus with other specified complication (principal); M86.8X7 Other osteomyelitis, ankle and foot; E11.65 Type 2 diabetes mellitus with hyperglycemia; E11.51 Type 2 diabetes mellitus with diabetic peripheral angiopathy without gangrene; E11.40 Type 2 diabetes mellitus with diabetic neuropathy, unspecified; Z91.19 Patient's noncompliance with other medical treatment and regimen
CPT/HCPCS: 95000

== ENCOUNTER → 2019-01-21 | Outpatient (CLI) | payer OTHER ==
[2019-01-21 11:53] VITALS: BP 134/74
--- NOTE | 2019-01-21 12:48 | NUR ---
IN FOR DAILY ERTAPENEM INFUSION. PATIENT SAW HIS SURGEON THIS MORNING AND SAID THE SURGEON IS PLEASED WITH HOW HIS FOOT IS HEALING. DRESSING TO LEFT FOOT C/D/I. DENIED PAIN, N/V, FEVER/CHILLS, DIARRHEA. RECEIVED GOOD BLOOD RETURN FROM PICC LINE. TOLERATED INFUSION WELL WITHOUT INCIDENT. TO RETURN TOMORROW AT 0900 FOR NEXT INFUSION. DISMISSED IN STABLE CONDITION.
== END ==
LOC: OPONC 01-19 13:48
DX: E11.69 Type 2 diabetes mellitus with other specified complication (principal); M86.8X7 Other osteomyelitis, ankle and foot
CPT/HCPCS: 95000

== ENCOUNTER → 2019-01-22 | Outpatient (CLI) | payer OTHER ==
[2019-01-22 13:45] VITALS: BP 116/62
--- NOTE | 2019-01-22 14:15 | NUR ---
HERE FOR DAILY IV ERTAPENEM. PT HAS BEEN VERY ACCOUNTABLE WITH APPTS AND KEEPING PICC DRESSING AND L FOOT DRESSING D/I. HOWEVER, HAVING SOME ISSUES WITH MANAGING HIS BLOOD SUGARS. DID SAY HE DID NOT EVEN CHECK HIS SUGARS TODAY BECAUSE HE HAD NOT YET TAKEN ANY INSULIN BECAUSE HE HAD RUN OUT OF NEEDLES. HE IS PLANNING TO PICK NEEDLES UP ON THE WAY HOME. STATES HE DOES HAVE A BOTTLE FOR EACH HIS LONG ACTING AND SHORT ACTING INSULINS. ALSO STATES HE HAS A SWEET TOOTH AND HAS TROUBLE AVOID SUGARY FOODS. TALKED WITH PT ABOUT IMPORTANCE OF BLOOD GLUCOSE MANAGEMENT FOR LONG TIME BENEFIT WELL HEALING BENEFIT. PT STATES HE DOESN'T HAVE A DOCTOR TO MANAGE HIS DIABETES. SPOKE WITH CASE MANAGEMENT WHO HAD ME REMIND PT ABOUT THE BROCURE HE WAS GIVEN WITH INFO FOR [facility]. STATES HE CAN JUST WALK IN, NO APPT NEEDED. PT STATES HE WILL LOOK FOR THAT WHEN HE GETS HOME TODAY AND WILL LET ME KNOW IF HE CANNOT FIND IT. PT WAS ALSO SEEN BY WOUND CARE NURSE, JOSUÉ, WHO CHANGED HIS FOOT DRESSING. SHE ALSO ENCOURAGED PT TO EAT WELL AND ADD PROTEIN FOR THE HEALING BENEFIT. PT VERBALIZES UNDERSTANDING. TOLERATED INFUSION TODAY WITHOUT INCIDENT. DENIES FEVER/CHILLS/SWEATS, NO N/V/DIARRHEA. DISMISSED IN STABLE CONDITION. SCHEDULED TO RETURN IN THE MORNING.
== END ==
LOC: OPONC 01:36
DX: E11.69 Type 2 diabetes mellitus with other specified complication (principal); M86.8X7 Other osteomyelitis, ankle and foot; E11.628 Type 2 diabetes mellitus with other skin complications; L08.9 Local infection of the skin and subcutaneous tissue, unspecified
CPT/HCPCS: 95000

== ENCOUNTER → 2019-01-23 | Outpatient (CLI) | payer OTHER ==
[2019-01-23 11:10] VITALS: BP 123/78
--- NOTE | 2019-01-23 11:40 | NUR ---
HERE FOR DAILY IV ERTAPENEM INFUSION. REPORTS FEELING OK, DOING OK PHYSICALLY. DENIES N/V/DIARRHEA, FEVER OR CHILLS. EATING WELL. STARTED PROTEIN SUPPLEMENT RECOMMENDED BY WOUND NURSE. HOWEVER, DID NOT END UP GETTING INSULIN NEEDLES SO HAS NOT TAKEN HIS INSULIN FOR AT LEAST A COUPLE DAYS IF I AM UNDERSTANDING CORRECTLY. STATES HE HAS ASKED HIS DTR TO SEND HIM SOME MONEY SO HE CAN AFFORD TO BUY SOME. ALSO NOT CHECKING HIS BLOOD GLUCOSE STATING HE IS AFRAID TO KNOW WHAT IT IS. THIS NURSE DID A FSBG TODAY TO CHECK PT'S GLUCOSE--167. EXPLORED WITH PT OPTIONS FOR GETTING INSULIN NEEDLES, CHECKING BLOOD GLUCOSE, TAKING INSULIN NEEDED AND GETTING GLUCOSE UNDER CONTROL. PT DID NOT FIND RESOURCE BOOKLET WITH INFO FOR FINDING A DOCTOR TO HELP HIM MANAGE HIS DIABETES. UNABLE TO REACH CASE MANAGEMENT IN TIME TO SEE PT TODAY BUT WILL ARRANGE FOR THEM TO VISIT WITH PT TOMORROW ABOUT RESOURCES, REFERRAL TO A PCP, UPDATE ON MEDICAID APPLICATION, ETC. PT SEEMS A BIT DOWN DISCOURAGED TODAY AND MOST APPRECIATIVE OF ANY ASSISTANCE OFFERED. TOLERATED INFUSION WITHOUT INCIDENT. DISMISSED IN STABLE CONDITION. SCHEDULED TO RETURN AGAIN IN THE MORNING.
== END ==
LOC: OPONC 01:21
DX: E11.69 Type 2 diabetes mellitus with other specified complication (principal); M86.8X7 Other osteomyelitis, ankle and foot; E11.628 Type 2 diabetes mellitus with other skin complications; L08.9 Local infection of the skin and subcutaneous tissue, unspecified
CPT/HCPCS: 95000

== ENCOUNTER → 2019-01-24 | Outpatient (CLI) | payer OTHER ==
[2019-01-24 11:21] LABS: HEMATOCRIT 37.1 % (42.0-52.0); HEMOGLOBIN 12.2 gm/dL (14.0-18.0); MCH 25.9 pg (26.0-34.0); MCHC 32.9 g/dL (28.0-37.0); MCV 78.7 fL (80.0-100.0); RBC 4.72 mil/uL (4.50-6.00); RDW 14.4 % (10.5-14.5); WBC 6.8 thou/uL (4.0-11.0)
[2019-01-24 11:30] VITALS: BP 144/66
[2019-01-24 11:38] LABS: ALBUMIN 2.8 g/dL (3.4-5.0); CALCIUM 9.2 mg/dL (8.5-10.1); CREATININE 0.8 mg/dL (0.7-1.3); POTASSIUM 3.9 mmol/L (3.5-5.1); TOTAL BILIRUBIN 0.4 mg/dL (<0.1-1.0); TOTAL PROTEIN 7.7 g/dL (6.4-8.2)
--- NOTE | 2019-01-24 11:54 | NUR ---
HERE FOR DAILY IV ERTAPENEM. LABS DRAWN TODAY WELL. IN CHECKING ON PT EARLIER THIS WEEK IT IS CLEAR THAT HE IS LACKING MONEY AND SOCIAL SUPPORT TO FULLY MANAGE HIS CARES. SOUNDS LIKE HE LIVES IN A TYPE OF COMMUNITY SITUATION, RENTING A ROOM, SHARING COMMON SPACE WITH OTHER FOLKS. CONSULTED CASE MANAGEMENT WHO CAME BY TODAY TO OFFER GREAT INFO ON HOW TO GET A PCP, ALL DIABETIC SUPPLIES, F/U ON MEDICAID AND DISABILITY APPS, ETC ALL OFFERED THROUGH [employer]. CASE MANAGEMENT UNABLE TO GET INSULIN SYRINGES TODAY BUT WILL BRING SOME TO PT ON SUNDAY UNTIL PT IS ABLE TO GET IN FOR [employer] APPT. PT STATES HE HAS ABOUT 4 SYRINGES AT THIS TIME THAT HE CAN USE. JOSUÉ WITH WOUND CARE CHANGED L FOOT DRESSING--SITE LOOKING SO MUCH BETTER. SHE WILL RETURN AGAIN ON SUNDAY. LOTTERY MANAGER CAME BY TO PRAY WITH PT AND GIVE HIM COMMUNION. THIS NURSE ALSO OFFERED EMOTIONAL SUPPORT WELL. PT INSTRUCTED TO COME TO THE ED FOR HIS WEEKEND INFUSIONS THEN RETURN HERE ON SUNDAY WHEN HE WILL SEE DR. RUCKER AND WOUND CARE, GET HIS INSULIN SYRINGES AND RECEIVE HIS INFUISON. DISMISSED IN STABLE CONDITION.
== END ==
LOC: OPONC 00:14
PROVIDERS: Specialist
DX: E11.69 Type 2 diabetes mellitus with other specified complication (principal); M86.8X7 Other osteomyelitis, ankle and foot
CPT/HCPCS: 95000

== ENCOUNTER → 2019-01-27 | Outpatient (CLI) | payer OTHER ==
[2019-01-27 09:34] VITALS: BP 155/78
--- NOTE | 2019-01-27 11:24 | NUR ---
IN FOR DAILY ERTAPENEM INFUSION. STATED FEELING WELL. DENIED N/V, FEVER/CHILLS, DIARRHEA. WOUND TO LEFT FOOT SLOWLY GETTING BETTER. ERYTHEMA NOTED TO TOP OF LEFT FOOT NEXT TO TOES. EDEMA LESSENING. SMALL AMOUNT OF DARK, DRIED BLOODY DRAINAGE. HAS A TRACT FROM TOP OF FOOT THROUGH TO BOTTOM OF FOOT. RATED PAIN #4. LASHA WITH WOUND CARE CAME AND CHANGED DRESSING. DR. RUCKER VISITED. TO CONTINUE THE SAME. PATIENT WEARING SHORT OPEN TOE BOOT ON LEFT FOOT AND USES WALKER FOR AMBULATION. TOLERATED INFUSION WELL WITHOUT INCIDENT. PICC SITE WNL AND DRESSING CHANGED. CLEMENTE PROVIDED SOME DIABETIC SUPPLIES TO LAST PATIENT UNTIL HE CAN SEE HIS NEW PCP. DISMISSED IN STABLE CONDITION.
== END ==
LOC: OPONC 01:43
DX: E11.69 Type 2 diabetes mellitus with other specified complication (principal); M86.8X7 Other osteomyelitis, ankle and foot; E11.42 Type 2 diabetes mellitus with diabetic polyneuropathy; M31.9 Necrotizing vasculopathy, unspecified
CPT/HCPCS: 95000

== ENCOUNTER → 2019-01-28 | Outpatient (CLI) | payer OTHER ==
[2019-01-28 11:43] VITALS: BP 159/86
--- NOTE | 2019-01-28 11:45 | NUR ---
IN FOR DAILY ERTAPENEM INFUSION. STATED DOING WELL WITH NO COMPLAINTS. TOLERATED INFUSION WELL WITHOUT INCIDENT. RECEIVED GOOD BLOOD RETURN FROM PICC LINE. SUKHWINDER SUMNER CM CAME AND PROVIDED PATIENT WITH INFORMATION RE; [place] [facility] [place] [facility]. PATIENT IN GOOD SPIRITS. DISMISSED IN STABLE CONDITION.
== END ==
LOC: OPONC 01:52
DX: E11.69 Type 2 diabetes mellitus with other specified complication (principal); M86.8X7 Other osteomyelitis, ankle and foot
CPT/HCPCS: 95000

== ENCOUNTER → 2019-01-29 | Outpatient (CLI) | payer OTHER ==
[2019-01-29 10:35] VITALS: BP 149/92
--- NOTE | 2019-01-29 10:35 | NUR ---
IN FOR DAILY ERTAPENEM INFUSION. REPORTS DOING WELL, FEELING WELL. DENIES ANY FEVER/CHILLS/SWEATS, N/V/DIARRHEA OR OTHER CONCERNS. STATES OBTAINED INSULIN SYRINGES SO IS NOW SET. SUKHWINDER WITH CASE MANAGEMENT CAME BY AGAIN TODAY TO BRING A PACKET WITH A TIMBER PACKER FOR APPT TRACKING AND OTHER MATERIALS TO HELP PT KEEP COMPLIANT AND BE SUCCESSFUL. JOSUÉ WITH WOUND CARE CAME BY TO CHANGE DRESSING. FOOT LOOKING SO MUCH BETTER. PT TOLERATED INFUSION WITHOUT INCIDENT. DISMISSED IN STABLE CONDITION. SCHEDULED TO RETURN AGAIN IN THE MORNING.
== END ==
LOC: OPONC
DX: E11.69 Type 2 diabetes mellitus with other specified complication (principal); M86.8X7 Other osteomyelitis, ankle and foot
CPT/HCPCS: 95000

== ENCOUNTER → 2019-01-30 | Outpatient (CLI) | payer OTHER ==
[2019-01-30 13:50] VITALS: BP 163/75
--- NOTE | 2019-01-30 13:55 | NUR ---
IN FOR DAILY ERTAPENEM INFUSION. STATED FEELING WELL PHYSICALLY. PATIENT VERY UPSET AND SAD TODAY. DID NOT TAKE HIS BLOOD SUGAR THIS MORNING OR TAKE HIS INSULIN. ACCUCHECK DONE AND WAS 257. PATIENT HAD NOT EATEN ANY BREAKFAST. PATIENT STATED HE WILL GO HOME AND TAKE HIS INSULIN PER HIS SLIDING SCALE, AND ALSO TAKE HIS LANTUS. TOLERATED INFUSION WELL WITH NO ADVERSE REACTION NOTED. TO RETURN TOMORROW FOR NEXT INFUSION. DISMISSED IN STABLE CONDITION.
== END ==
LOC: OPONC 03:11
DX: E11.69 Type 2 diabetes mellitus with other specified complication (principal); M86.8X7 Other osteomyelitis, ankle and foot
CPT/HCPCS: 95000

== ENCOUNTER → 2019-01-31 | Outpatient (CLI) | payer OTHER ==
[2019-01-31 11:23] LABS: HEMATOCRIT 37.9 % (42.0-52.0); HEMOGLOBIN 12.5 gm/dL (14.0-18.0); MCH 26.2 pg (26.0-34.0); MCHC 33.1 g/dL (28.0-37.0); MCV 79.2 fL (80.0-100.0); RBC 4.78 mil/uL (4.50-6.00); WBC 6.5 thou/uL (4.0-11.0)
[2019-01-31 11:40] VITALS: BP 159/80
--- NOTE | 2019-01-31 11:40 | NUR ---
HERE FOR DAILY IV ERTAPENEM INFUSION. REPORTS DOING WELL, FEELING WELL. DENIES N/V/DIARRHEA, FEVER/CHILLS OR OTHER CONCERNS. HOWEVER, VERY QUIET TODAY AND SEEEMS A BIT DOWN. PT STATES A FEW THINGS GOING ON AND WAS QUITE DISCOURAGED TODAY WHEN HE WENT TO SEE THE SURGEON IN FOLLOW UP BUT WAS NOT ABLE TO BE SEEN BECAUSE OF HIS FINANCIAL SITUATION. WOUND CARE TEAM HERE TODAY, JOSUÉ CHANGED THE DRESSING AND THE N.P., ELLYN ASSESSED THE WOUND AND FELT IT WAS TIME FOR THE SUTURES TO BE REMOVED SO HE DID REMOVE THE SUTURES. WOUND LOOKING SO MUCH BETTER. PT STATES THE OFFICE VISIT WAS FOR SUTURE REMOVAL AND IS HAPPY THIS COULD BE ACCOMODATED HERE TODAY. PT STATES HE WILL LET DR. RUCKER KNOW THAT HE COULD NOT SEE THE SURGEON DIRECTED. PT CONTINUING TO TAKE GOOD CARE OF PICC LINE, LEON IS D/I. PT TO REPORT TO THE ED OVER THE WEEKEND THEN RETURN HERE ON SUNDAY FOR HIS INFUSION, DRESSING CHANGE AND TO SEE DR. RUCKER. LABS DRAWN TODAY. PT REPORTS KEEPING BETTER CONTROL OF BLOOD GLUCOSE NOW THAT HE HAS ALL OF HIS NEEDED SUPPLIES. DISMISSED IN STABLE CONDITION. USES WALKER AND PLANS TO OFF LOAD MUCH POSSIBLE THIS WEEKEND.
[2019-01-31 11:43] LABS: ALBUMIN 3.2 g/dL (3.4-5.0); CALCIUM 8.8 mg/dL (8.5-10.1); CREATININE 0.8 mg/dL (0.7-1.3); TOTAL BILIRUBIN 0.6 mg/dL (<0.1-1.0)
== END ==
LOC: OPONC 00:31
PROVIDERS: Specialist
DX: E11.69 Type 2 diabetes mellitus with other specified complication (principal); M86.8X7 Other osteomyelitis, ankle and foot
CPT/HCPCS: 95000

== ENCOUNTER → 2019-02-03 | Outpatient (CLI) | payer OTHER ==
[2019-02-03 13:47] VITALS: BP 153/75
--- NOTE | 2019-02-03 13:51 | NUR ---
IN FOR DAILY ERTAPENEM INFUSION. STATED FEELING WELL WITH NO COMPLAINTS. TOLERATING MEDICATION WELL. DR. RUCKER VISITED. TO CONTINUE THE SAME WITH F/U VISIT NEXT SUNDAY. WOUND TO LEFT FOOT LOOKING MUCH BETTER. INCISION WELL APPROXIMATED WITH NO DRAINAGE. EDEMA MUCH LESS. SMALL AREA OF ERYTHEMA PROXIMAL TO AMPUTATION SITE ON TOP OF FOOT. SMALL AMOUNT OF DARK SEROSANGUINOUS DRAINAGE FROM TRAC HOLE. JOSUÉ WITH WOUND CARE APPLIED CLEAN DRESSING. DR. BIRCH VISITED ALSO. TO RETURN TOMORROW FOR INFUSION. DISMISSED IN GOOD CONDITION.
== END ==
LOC: OPONC 08:57
DX: E11.69 Type 2 diabetes mellitus with other specified complication (principal); M86.8X7 Other osteomyelitis, ankle and foot; E11.42 Type 2 diabetes mellitus with diabetic polyneuropathy; M31.9 Necrotizing vasculopathy, unspecified
CPT/HCPCS: 95000

== ENCOUNTER → 2019-02-04 | Outpatient (CLI) | payer OTHER ==
[2019-02-04 10:50] VITALS: BP 141/69
--- NOTE | 2019-02-04 11:05 | NUR ---
HERE FOR DAILY ERTAPENEM INFUSION. REPORTS DOING WELL, FEELING WELL. DENIES ANY N/V/DIARRHEA, FEVER OR CHILLS. EATING WELL. STATES BLOOD GLUCOSE IS FAIRLLY WELL CONTROLLED AND HE HAS ALL THE SUPPLIES HE NEEDS. NO PAIN. L FOOT DRESSED AND PT USING WALKING BOOT AND WALKER TO OFF LOAD WHEN UP. DOES VOICE ONE WORRY. STATES HE KEEPS FORGETTING THINGS AND IS WORRIED THAT HE MIGHT BE DEVELOPING SOME DEMENTIA. STATES HIS MOTHER HAD DEMENTIA AND HIS 59 YEAR OLD SISTER IS AFFECTED. ENCOURAGED PT TO BRING THIS UP AT HIS PCP APPT AT [facility] ON FEBRUARY 24. GAVE PT A PIECE OF PAPER WITH QUESTIONS FOR THE DOCTOR AND ENCOURAGED HIM TO JOT DOWN ANY QUESTIONS BETWEEN NOW AND THEN AND TAKE THIS WITH HIM TO THE APPT. QUESTION ABOUT DEMENTIA WRITTEN DOWN ON THIS SHEET. PT TOLERATING INFUSIONS WITHOUT INCIDENT. SCHEDULED TO RETURN AGAIN IN THE MORNING.
== END ==
LOC: OPONC 00:46
DX: E11.69 Type 2 diabetes mellitus with other specified complication (principal); M86.8X7 Other osteomyelitis, ankle and foot
CPT/HCPCS: 95000

== ENCOUNTER → 2019-02-05 | Outpatient (CLI) | payer OTHER ==
[2019-02-05 10:32] VITALS: BP 159/76
--- NOTE | 2019-02-05 11:15 | NUR ---
PT HERE FOR DAILY IV ERTAPENEM. VISIBLY SAD TODAY. ASKED PT WHAT WAS ON HIS MIND AND HE LET ME KNOW THAT HIS SON-IN-LAW TOOK HIS LIFE YESTERDAY. PT IS UNDERSTANDABLY UPSET. LISTENED TO HIS STORY AND CALLED YARD RIGGER BEN WHO DID COME BY TO OFFER A LISTENING EAR AND SUPPORT. PT ALSO VISITED BY JOSUÉ, WOUND CARE NURSE WHO NOT ONLY CHANGED HIS FOOT DRESSING BUT ALSO OFFERED SUPPORT. PT WITHOUT OTHER COMPLAINTS OR CONCERNS. TOLERATED INFUSION WITHOUT INCIDENT. DISMISSED IN STABLE CONDITION. WILL RETURN TOMORROW MORNING.
== END ==
LOC: OPONC 00:27
DX: E11.69 Type 2 diabetes mellitus with other specified complication (principal); M86.8X7 Other osteomyelitis, ankle and foot
CPT/HCPCS: 95000

== ENCOUNTER → 2019-02-06 | Outpatient (CLI) | payer OTHER ==
[2019-02-06 10:53] VITALS: BP 161/81
--- NOTE | 2019-02-06 11:25 | NUR ---
HERE FOR DAILY ERTAPENEM INFUSION. CONTINUES TO REPORT DOING WELL PHYSICALLY. NO N/V/DIARRHEA, FEVER/CHILLS. FOOT DRESSING D/I, DENIES PAIN. PICC SITE LOOKS GOOD. TOLERATED INFUSION WITHOUT INCIDENT. EMOTIONAL SUPPORT OFFERED PT DEALING WITH TRAGIC LOSS OF HIS SON-IN-LAW 2 DAYS AGO. DISMISSED IN STABLE CONDITION. SCHEDULED TO RETURN IN THE MORNING.
== END ==
LOC: OPONC 00:37
DX: E11.69 Type 2 diabetes mellitus with other specified complication (principal); M86.8X7 Other osteomyelitis, ankle and foot
CPT/HCPCS: 95000

== ENCOUNTER → 2019-02-07 | Outpatient (CLI) | payer OTHER ==
[2019-02-07 11:26] LABS: HEMATOCRIT 40.7 % (42.0-52.0); HEMOGLOBIN 13.7 gm/dL (14.0-18.0); MCH 26.6 pg (26.0-34.0); MCHC 33.6 g/dL (28.0-37.0); MCV 79.1 fL (80.0-100.0); RBC 5.14 mil/uL (4.50-6.00); RDW 15.2 % (10.5-14.5); WBC 8.2 thou/uL (4.0-11.0)
[2019-02-07 11:29] VITALS: BP 149/82
[2019-02-07 11:38] LABS: ALBUMIN 3.3 g/dL (3.4-5.0); CALCIUM 8.7 mg/dL (8.5-10.1); CREATININE 0.8 mg/dL (0.7-1.3); POTASSIUM 3.7 mmol/L (3.5-5.1); TOTAL BILIRUBIN 0.4 mg/dL (<0.1-1.0)
--- NOTE | 2019-02-07 12:14 | NUR ---
IN FOR DAILY ERTAPENEM INFUSION. WEEKLY LABS DRAWN FROM PICC LINE WITHOUT DIFFICULTY. TOLERATED INFUSION WELL WITHOUT INCIDENT. PICC SITE LOOKS GOOD. BRIANDA MOSES WITH WOUND CARE CHANGED DRESSING TO LEFT FOOT WOUND. WOUND HEALING NICELY. HOLE THROUGH FOOT CLOSING IN. SLIGHT EDEMA. SMALL PINK AREA ON TOP OF FOOT NEXT TO 2ND AND 3RD TOES. MINIMAL DRAINAGE. INCISION HEALED. PATIENT IN GOOD SPIRITS. LABS FAXED TO DR. RUCKER. WILL SEE DR. RUCKER HERE IN CLINIC ON SUNDAY. DISMISSED IN STABLE CONDITION.
== END ==
LOC: OPONC 03:29
PROVIDERS: Specialist
DX: E11.69 Type 2 diabetes mellitus with other specified complication (principal); M86.8X7 Other osteomyelitis, ankle and foot
CPT/HCPCS: 95000

== ENCOUNTER → 2019-02-10 | Outpatient (CLI) | payer OTHER ==
--- NOTE | 2019-02-10 11:59 | NUR ---
WOUND FOLLOW UP: PT. WAS SEEN TODAY IN THE INFUSION CLINIC FOR A DRESSING CHANGE. PT. WAS SEEN BY DR. RUCKER WELL. PT. STICHES WERE REMOVED 1 WEEK AGO. WOUND IS CLINICALLY BETTER. THE PLANTER SURFACE WOUND NO LONGER COMMUNICATES WITH THE INCSION. PT. HAS A MILD AMOUNT OF SEROSANGIOUS DRAIANGE PRESENT WITH DRESSING CHANGES BUT, NO ODOR. RECOMMENDATIONS: PER. DR. RUCKER HE WILL BE RE-EVULATED IN 1 WEEK TO DETERMINE CONTINUATION OF IV ANTIBOTICS. WOUND CARE TO LEFT FOOT: GENTLY CLEANSE, PACK WITH PURACOL AG, COVER INCSION LINE WITH AQUECEL AG, THEN SECURE WITH KERLIX AND DG, COMPLETE CARES M/W/F AND PRN. PT. AND STAFF NURSE WERE INSTRUCTED ON PLAN OF CARE.
[2019-02-10 13:15] VITALS: BP 146/71
--- NOTE | 2019-02-10 13:24 | NUR ---
IN FOR DAILY ERTAPENEM INFUSION. PATIENT STATED COULD NOT MAKE IT TO GET INFUSIONS OVER THE WEEKEND DUE TO TRANSPORTATION PROBLEMS. STATED FEELING WELL WITH NO COMPLAINTS OF N/V, FEVER/CHILLS, DIARRHEA. TOLERATED INFUSION WITHOUT INCIDENT. DR. RUCKER VISITED. TO CONTINUE THE SAME FOR ONE MORE WEEK. WILL FOLLOW UP AGAIN NEXT SUNDAY. JOSUÉ WITH WOUND CARE CHANGED DRESSING TO LEFT FOOT. WOUND LOOKING MUCH BETTER. STILL WITH MILD ERYTHEMA, EDEMA. HOLE IN FOOT FILLING IN. DOES NOT TRACK TO TOP OF FOOT NOW. INCISION HEALED. INSTRUCTED PATIENT WILL CONTINUE THE SAME FOR ONE MORE WEEK. CHANGED DRESSING TO PICC LINE. SITE WNL. GOOD BLOOD RETURN AND FLUSHED EASILY. DISMISSED IN STABLE CONDITION.
== END ==
LOC: OPONC 00:29
DX: E11.69 Type 2 diabetes mellitus with other specified complication (principal); M86.8X7 Other osteomyelitis, ankle and foot; E11.42 Type 2 diabetes mellitus with diabetic polyneuropathy; M31.9 Necrotizing vasculopathy, unspecified
CPT/HCPCS: 95000

== ENCOUNTER → 2019-02-11 | Outpatient (CLI) | payer OTHER ==
[2019-02-11 11:20] VITALS: BP 149/81
--- NOTE | 2019-02-11 11:20 | NUR ---
HERE FOR DAILY IV ERTAPENEM INFUSION. REPORTS DOING WELL. LOOKS GOOD. SPOKE BRIEFLY ABOUT OF HIS SON-IN-LAW. PT FEELS HE IS DEALING WITH THIS LOSS. OFFERED PASTORAL CARE VISIT IF HE EVER DESIRES. DENIES N/V/DIARRHEA, FEVER/CHILLS OR ANY OTHER CONCERNS. USES SPECIAL WALKING SHOE AND WALKER. FOOT DRESSING COVERED WITH PROTECTIVE SOCK. PICC LINE WITH EXCELLENT BLOOD RETURN. TOLERATED INFUSION WITHOUT INCIDENT. DISMISSED IN STABLE CONDITION. SCHEDULED TO RETURN AGAIN IN THE MORNING.
== END ==
LOC: OPONC 01:24
DX: E11.69 Type 2 diabetes mellitus with other specified complication (principal); M86.8X7 Other osteomyelitis, ankle and foot
CPT/HCPCS: 95000

== ENCOUNTER → 2019-02-12 | Outpatient (CLI) | payer OTHER ==
[2019-02-12 10:05] VITALS: BP 166/83
--- NOTE | 2019-02-12 11:25 | NUR ---
HERE FOR DAILY ERTAPENEM. SPRIRITS BRIGHTER TODAY. STATES HE FINALLY FEELS THAT HE REALLY IS GOING TO GET BETTER. VERY APPRECIATIVE OF THE CARE HE HAS RECEIVED FROM ALL OF THE TEAM. WOUND CARE NURSE CHANGED DRESSING AGAIN TODAY. FOOT HAS SEEN SIGNIFICANT IMPROVEMENT SINCE I SAW IT LAST WEEK. TOLERATED INFUSION WITHOUT INCIDENT. DISMISSED IN STABLE CONDITION. SCHEDULED TO RETURN AGAIN IN THE MORNING.
== END ==
LOC: OPONC 00:50
DX: E11.69 Type 2 diabetes mellitus with other specified complication (principal); M86.8X7 Other osteomyelitis, ankle and foot
CPT/HCPCS: 95000

== ENCOUNTER → 2019-02-13 | Outpatient (CLI) | payer OTHER ==
[2019-02-13 13:47] VITALS: BP 135/68
--- NOTE | 2019-02-13 13:49 | NUR ---
IN FOR DAILY ERTAPENEM INFUSION. STATED FEELING WELL. DENIES PAIN/FEVER/CHILLS/NAUSEA. RECEIVED GOOD BLOOD RETURN FROM PICC LINE AND FLUSHED EASILY. TOLERATED INFUSION WITHOUT INCIDENT. TO RETURN TOMORROW FOR THE SAME. DISMISSED IN STABLE CONDITION.
== END ==
LOC: OPONC 00:43
DX: E11.69 Type 2 diabetes mellitus with other specified complication (principal); M86.8X7 Other osteomyelitis, ankle and foot
CPT/HCPCS: 95000

== ENCOUNTER → 2019-02-15 | Outpatient (CLI) | payer OTHER | LOC: OPONC 06:51 | DX: E11.69 Type 2 diabetes mellitus with other specified complication (principal); M86.8X7 Other osteomyelitis, ankle and foot | CPT/HCPCS: 95000 ==

== ENCOUNTER → 2019-02-17 | Outpatient (CLI) | payer OTHER ==
[2019-02-17 09:44] LABS: HEMATOCRIT 37.3 % (42.0-52.0); HEMOGLOBIN 12.3 gm/dL (14.0-18.0); MCH 26.4 pg (26.0-34.0); MCHC 32.9 g/dL (28.0-37.0); MCV 80.3 fL (80.0-100.0); RBC 4.65 mil/uL (4.50-6.00); RDW 15.5 % (10.5-14.5); WBC 7.3 thou/uL (4.0-11.0)
[2019-02-17 10:19] LABS: ALBUMIN 3.2 g/dL (3.4-5.0); CALCIUM 8.8 mg/dL (8.5-10.1); CREATININE 0.7 mg/dL (0.7-1.3); POTASSIUM 3.7 mmol/L (3.5-5.1); TOTAL BILIRUBIN 0.4 mg/dL (<0.1-1.0); TOTAL PROTEIN 7.4 g/dL (6.4-8.2)
[2019-02-17 15:38] VITALS: BP 142/56
--- NOTE | 2019-02-17 15:41 | NUR ---
IN FOR DAILY ERTAPENEM INFUSION. STATED FEELING WELL WITH NO C/O FEVER/CHILLS, N/V, DIARRHEA. TOLERATED INFUSION WELL WITH NO ADVERSE REACTION NOTED. [place]UNIA LABS FROM PICC LINE WITHOUT DIFFICULTY. DR. RUCKER VISITED. WILL CONTINUE FOR 3 MORE DAYS AND THEN WILL CHANGE TO PO AUGMENTIN. JOSUÉ WITH WOUND CARE CHANGED DRESSING. PATIENT DID NOT GET HIS SUNDAY INFUSION HIS RIDE COULD NOT WAIT ON ED STAFF TO GET TO HIM. PATIENT STATED HE WAITED FOR 1 HOUR AND THEN HAD TO LEAVE. NOTIFIED DR. RUCKER ON ROUNDS. TO RETURN TOMORROW. DISMISSED IN STABLE CONDITION.
== END ==
LOC: OPONC
PROVIDERS: Specialist
DX: E11.69 Type 2 diabetes mellitus with other specified complication (principal); M86.8X7 Other osteomyelitis, ankle and foot; E11.42 Type 2 diabetes mellitus with diabetic polyneuropathy; M31.9 Necrotizing vasculopathy, unspecified
CPT/HCPCS: 95000

== ENCOUNTER → 2019-02-18 | Outpatient (CLI) | payer OTHER ==
[2019-02-18 13:20] VITALS: BP 149/80
--- NOTE | 2019-02-18 13:25 | NUR ---
IN FOR DAILY ERTAPENEM INFUSION. STATED FEELING WELL. DENIED PAIN, FEVER/CHILLS, N/V, DIARRHEA. TOLERATED INFUSION WITHOUT INCIDENT. CHANGED PICC DRESSING. SITE WNL. TO RETURN TOMORROW FOR NEXT INFUSION. DISMISSED IN STABLE CONDITION.
== END ==
LOC: OPONC 06:26
DX: E11.69 Type 2 diabetes mellitus with other specified complication (principal); M86.8X7 Other osteomyelitis, ankle and foot
CPT/HCPCS: 95000

== ENCOUNTER → 2019-02-19 | Outpatient (CLI) | payer OTHER ==
[2019-02-19 10:50] VITALS: BP 156/76
--- NOTE | 2019-02-19 10:50 | NUR ---
HERE FOR DAILY ERTAPENEM INFUSION. REPORTS DOING WELL. JOSUÉ, WOUND CARE NURSE CHANGED FOOT DRESSING. SITE LOOKS AMAZING. STILL ABLE TO PROBE A QTIP INTO WOUND ON BOTTOM OF FOOT BUT NO LONGER TUNNELS ALL THE WAY THROUGH. SHE WILL PLAN TO CHANGE DRESSING AGAIN ON SUN AND MON (WHEN PT RETURNS TO SEE DR. RUCKER). SPOKE WITH SUKHWINDER IN CASE MANAGEMENT TO MAKE ARRANGEMENTS TO HELP PT WITH FILLING HIS AUGMENTIN SCRIPT. FIRST 5 DAYS WILL BE FILLED AND VOUCHED FOR IN OUR PHARMACY AND REMAINING DAYS AT [facility] WHEN PT GOES FOR HIS VISIT ON 02/24. SCRIPT FOR THIS REMAINING BALANCE (AUGMENTIN 875 1 PO BID #[id number], NO REFILLS) WRITTEN BY DR. RUCKER AND WILL BE GIVEN TO PT TOMORROW. PT TOLERATED INFUSION WITOUT INCIDENT. DISMISSED IN STABLE CONDITION. SCHEDULED TO RETURN IN THE MORNING.
== END ==
LOC: OPONC 02:31
DX: E11.69 Type 2 diabetes mellitus with other specified complication (principal); M86.8X7 Other osteomyelitis, ankle and foot
CPT/HCPCS: 95000

== ENCOUNTER → 2019-02-20 | Outpatient (CLI) | payer OTHER ==
[2019-02-20 09:39] VITALS: BP 160/71
--- NOTE | 2019-02-20 09:43 | NUR ---
IN FOR LAST DOSE OF ERTAPENEM. STATED FEELING WELL. TOLERATED INFUSION WITHOUT INCIDENT. REMOVED PICC LINE WITH TIP INTACT. APPLIED GAUZE AND COBAN. SUKHWINDER SUMNER CM SUPPLIED PATIENT WITH 5 DAYS WORTH OF AUGMENTIN, AND PATIENT WILL GET THE REST OF HIS PRESCRIPTION FILLED WITH [facility] AT HIS APPT. ON SUNDAY. TO RETURN TOMORROW FOR DRESSING CHANGE PER WOUND CARE. DISMISSED IN STABLE CONDITION.
== END ==
LOC: OPONC 01:15
DX: E11.69 Type 2 diabetes mellitus with other specified complication (principal); M86.8X7 Other osteomyelitis, ankle and foot
CPT/HCPCS: 95000

== ENCOUNTER → 2019-02-21 | Outpatient (CLI) | payer OTHER ==
[2019-02-21 10:45] VITALS: BP 132/72
--- NOTE | 2019-02-21 10:45 | NUR ---
IN FOR WOUND CARE/DRESSING CHANGE L FOOT TODAY. REPORTS STARTING ON HIS AUGMENTIN THIS MORNING AND VERBALIZES THAT THIS IS TO BE TAKEN TWICE DAILY. HAS ENOUGH MED TO GO THROUGH SUNDAY AND HAS SCRIPT FOR REMAINING (#20) TO COMPLETE TREATMENT. HE WILL TAKE THIS SCRIPT WITH HIM WHEN HE GOES FOR HIS FIRST PCP APPT AT [facility]. THAT APPT IS SET UP FOR SUNDAY, FEB 24. WOUND CARE NURSE HERE TO CHANGE DRESSING TODAY--PLEASE SEE WOUND NOTE. ERYTHEMA MARKED WITH SHARPIE TO SEE IF IT WORSENS OR IMPROVES BY SUNDAY. REINFORCED NEED TO KEEP DRESSING DRY. PT AFRAID THAT HIS FOOT GOT WET WITH THE RAIN YESTERDAY. PT DISMISSED IN STABLE CONDITION POST DRESSING CHANGE. SCHEDULED TO RETURN HERE AGAIN ON SUNDAY TO SEE DR. RUCKER AND HAVE DRESSING CHANGED AGAIN.
--- NOTE | 2019-02-21 11:01 | NUR ---
WOUND CARE; PATIENT ARRIVED FOR AN OUTPATIENT WOUND DRESSING CHANGE TO THE LEFT FOOT TODAY. HIS SOCK AND THE DRESSING WAS WET AND WAS YELLOW TINGED AND SOILED. THE WOUND DEPTH WAS 1.5 CM AND WAS DIFFICULT TO PACK. A SMALL PIECE OF AQUACEL AG WAS PACKED INTO THE WOUND, COVERED WITH A FOAM DRESSING, WRAPPED WITH KERLIX, SECURED WITH DG. THE PERIWOUND HAD ERYTHEMA W/O WARMTH, BUT THE WOUNDBED WAS PAINFUL WHILE PACKING THE WOUND. THE PATIENT IS CHANGING TO AN ORAL ANTIBIOTIC STARTING TODAY. DISCUSSED OTHER S/S OF INFECTION, INCREASED PAIN, INCREASE DRAINAGE, FEVER ETC... PATIENT VERBILAZED UNDERSTANDIING AND WHEN TO SEEK MEDICAL CARE. RN PRESENT DURING ASSESSMENT AND TEACHING
== END ==
LOC: OPONC 07:40
DX: S91.302D Unspecified open wound, left foot, subsequent encounter (principal); E11.69 Type 2 diabetes mellitus with other specified complication; M86.8X8 Other osteomyelitis, other site; X58.XXXD Exposure to other specified factors, subsequent encounter
CPT/HCPCS: 91018

== ENCOUNTER → 2019-02-24 | Outpatient (CLI) | payer OTHER ==
[2019-02-24 09:05] VITALS: BP 130/73; BP 139/91
[2019-02-24 11:54] LABS: MCH 27.1 pg (26.0-34.0); MCHC 34.3 g/dL (28.0-37.0); MCV 79.1 fL (80.0-100.0); RBC 4.8 mil/uL (4.50-6.00); RDW 15.6 % (10.5-14.5); WBC 7.3 thou/uL (4.0-11.0)
[2019-02-24 12:12] LABS: ALBUMIN 3.7 g/dL (3.4-5.0); CALCIUM 9.3 mg/dL (8.5-10.1); CREATININE 0.7 mg/dL (0.7-1.3); POTASSIUM 4.1 mmol/L (3.5-5.1); TOTAL BILIRUBIN 0.5 mg/dL (<0.1-1.0); TOTAL PROTEIN 7.5 g/dL (6.4-8.2)
--- NOTE | 2019-02-24 15:04 | NUR ---
IN FOR CLINIC VISIT WITH DR. RUCKER. LEFT FOOT WOUND ALMOST HEALED. SINUS TRAC CLOSED. SLIGHTLY PINK TO TOP OF FOOT NEXT TO 2ND TOE. DENIED PAIN. NO DRAINAGE. PATIENT ACCIDENTALLY STEPPED IN SOME TAR AND GOT LEFT FOOT DIRTY. HE TRIED TO CLEAN IT HIMSELF. JOSUÉ WITH WOUND CARE CLEANED ALL THE TAR OFF. NO DRESSING APPLIED. JOSUÉ STATED OK TO WEAR A REGULAR SHOE NOW BUT TO KEEP FOOT UP IN THE EVENING AFTER WORKING. PATIENT STATED HIS ANTIBIOTIC PILLS WERE STOLEN HE LIVES IN A HOMELESS PRISON HOUSE AND THERE IS NO WAY TO LOCK THINGS UP. HE ONLY HAD 2 PILLS BEFORE IT WAS STOLEN. SUKHWINDER WITH CM ARRANGED FOR PATIENT TO HAVE HIS PRESCRIPTION FILLED HERE AND CM PAID FOR IT. TO RETURN NEXT SUNDAY FOR HOPEFULLY A LAST VISIT WITH DR. RUCKER. DISMISSED IN STABLE CONDITION.
== END ==
LOC: OPONC
PROVIDERS: Specialist
DX: E11.69 Type 2 diabetes mellitus with other specified complication (principal); M86.8X7 Other osteomyelitis, ankle and foot
CPT/HCPCS: 91016

== ENCOUNTER → 2019-02-26 | Outpatient (CLI) | payer OTHER ==
--- NOTE | 2019-02-26 12:00 | NUR ---
PT PRESENTED TO CLINIC WITH C/O INCREASED PAIN, REDNESS AND SWELLING L FOOT. WOUND CARE NURSE EVALUATED. NO OPENING IN THE WOUND. SEEN BY DR. RUCKER FOR QUICK EVALUATION. ADVISED PT TO ELEVATE FOOT, OFF LOAD MUCH POSSIBLE, USE WALKER, ADD COMPRESSION. PUT TUBIGRIP ON FOOT TO KNEE WITH SOCK OVER IT. PT USING 3/4 WALKING SHOE. STATES HE DID DO A FULL DAY'S WORK YESTERDAY (02/25) WHICH HE FEELS LED TO THE PROBLEM. STATES SWELLING IS BETTER THAN END OF DAY YESTERDAY. AGREES WITH PLAN. DISMISSED IN STABLE CONDITION. WILL RETURN ON SUNDAY TO SEE DR. RUCKER AGAIN.
== END ==
LOC: OPONC 16:40
DX: M86.8X7 Other osteomyelitis, ankle and foot (principal)
CPT/HCPCS: 91016

== ENCOUNTER → 2019-03-05 | Outpatient (CLI) | payer OTHER ==
[2019-03-05 09:59] LABS: HEMATOCRIT 41.2 % (42.0-52.0); HEMOGLOBIN 13.8 gm/dL (14.0-18.0); MCH 26.5 pg (26.0-34.0); MCHC 33.4 g/dL (28.0-37.0); MCV 79.5 fL (80.0-100.0); RBC 5.19 mil/uL (4.50-6.00); RDW 15.4 % (10.5-14.5); WBC 8.1 thou/uL (4.0-11.0)
[2019-03-05 10:13] LABS: ALBUMIN 3.5 g/dL (3.4-5.0); CALCIUM 9.1 mg/dL (8.5-10.1); CREATININE 0.8 mg/dL (0.7-1.3); POTASSIUM 3.4 mmol/L (3.5-5.1); TOTAL BILIRUBIN 0.8 mg/dL (<0.1-1.0); TOTAL PROTEIN 8.2 g/dL (6.4-8.2)
[2019-03-05 10:30] VITALS: BP 133/76
--- NOTE | 2019-03-05 10:30 | NUR ---
IN FOR FINAL F/U VISIT WITH DR. RUCKER FOR L 2ND TOE OSTEOMYELITIS. REPORTS DOING WELL, FEELING WELL. L FOOT IS SWOLLEN AND SLIGHTLY REDDENED BUT SWELLING DOES APPEAR TO DECREASE EVEN WITH MINIMAL TIME OF ELEVATION. WOUNDS ALL CLOSED. DENIES FEVER/CHILLS/SWEATS. EATING WELL. DENIES N/V/DIARRHEA. ON LAST COUPLE DAYS OF ORAL AUGMENTIN. HAS NEW PT APPT WITH [facility] ON 03/24 (MISSED HIS ORIGINAL 02/24 APPT D/T RIDE ISSUES). LABS DRAWN. PT SEEN BY DR. RUCKER THEN DISMISSED. NO RETURN APPT NEEDED AT THIS TIME.
== END ==
LOC: OPONC 00:28
PROVIDERS: Specialist
DX: E11.69 Type 2 diabetes mellitus with other specified complication (principal); M86.8X7 Other osteomyelitis, ankle and foot
CPT/HCPCS: 91016

== ENCOUNTER 2019-07-05 11:19 | Inpatient (IN) | payer OTHER ==
[~2019-07-05] VITALS: Ht 175.3 cm; Wt 70.7 kg
[2019-07-05] VITALS (22 sets, daily range): BP systolic 93–154; BP diastolic 46–71
[2019-07-05] MEDS ORDERED: COUMADIN 3 MG TA3 M1 PO (11:26)
[2019-07-05 11:41] LABS: ABSOLUTE NEUTROPHILS 14.7 thou/uL (1.4-8.2); BASOPHILS 0.2 % (0.0-2.0); EOSINOPHILS 0.3 % (0.0-3.0); HEMATOCRIT 32.5 % (42.0-52.0); HEMOGLOBIN 10.9 gm/dL (14.0-18.0); LYMPHOCYTES 8.1 % (24.0-44.0); MCH 27.6 pg (26.0-34.0); MCHC 33.5 g/dL (28.0-37.0); MCV 82.2 fL (80.0-100.0); MONOCYTES 7.8 % (1.0-8.0); PLATELET COUNT 286 thou/uL (150-400); POLYS 83.6 % (36.0-66.0); RBC 3.96 mil/uL (4.50-6.00); RDW 14.5 % (10.5-14.5); WBC 17.5 thou/uL (4.0-11.0)
[2019-07-05 11:50] LABS: CALCIUM 8.2 mg/dL (8.5-10.1); CREATININE 1.7 mg/dL (0.7-1.3); POTASSIUM 3.8 mmol/L (3.5-5.1)
[2019-07-05 11:53] LABS: APTT 28.5 Seconds (24.5-32.8); INR 1.1; PROTIME 11.1 Seconds (9.3-11.4)
[2019-07-05 14:39] LABS: URINE BILIRUBIN NEGATIVE (Negative); URINE BLOOD NEGATIVE (Negative); URINE CLARITY CLEAR; URINE COLOR YELLOW; URINE GLUCOSE-RANDOM* 3+ (Negative); URINE KETONES NEGATIVE (Negative); URINE LEUKOCYTES-REFLEX NEGATIVE (Negative); URINE NITRITE-REFLEX NEGATIVE (Negative); URINE PROTEIN (DIPSTICK) 2+ (Negative); URINE SPECIFIC GRAVITY 1.025 (1.005-1.035)
[2019-07-05 14:44] LABS: HYALINE CASTS 4-10 Moderate /LPF (None Seen); MUCUS >6 Heavy strn/LPF (None Seen); SQUAMOUS 0-3 Few /LPF (0-3)
[2019-07-05 14:45] LABS: FINE GRANULAR CASTS 0-3 Few /LPF (None Seen)
[2019-07-05 14:46] LABS: BACTERIA-REFLEX None Seen /HPF (None Seen); CRYSTALS None Seen /LPF (None Seen); URINE RBC 0-2 Rare /HPF (0-2); URINE WBC-REFLEX 0-5 Rare /HPF (0-5)
--- NOTE | 2019-07-05 18:17 | NUR ---
DR MAN'S ANSWERING SERVICE CONTACTED
--- NOTE | 2019-07-05 19:16 | NUR ---
PT ABLE TO ADJUST SELF IN BED. Q 2 HOUR TURNS NOT APPLICABLE.
[2019-07-06] VITALS (19 sets, daily range): BP systolic 113–160; BP diastolic 49–87
[2019-07-06 05:38] LABS: HEMATOCRIT 34.4 % (42.0-52.0); HEMOGLOBIN 11.4 gm/dL (14.0-18.0); MCH 27.4 pg (26.0-34.0); MCHC 33.1 g/dL (28.0-37.0); MCV 82.8 fL (80.0-100.0); RBC 4.16 mil/uL (4.50-6.00); RDW 14.6 % (10.5-14.5); WBC 9.8 thou/uL (4.0-11.0)
[2019-07-06 05:41] LABS: CALCIUM 8.2 mg/dL (8.5-10.1); CREATININE 0.8 mg/dL (0.7-1.3); POTASSIUM 3.5 mmol/L (3.5-5.1)
[2019-07-06 06:24] LABS: AMP/METHAMP POSITIVE (Negative); BARBITURATES Negative (Negative); BENZODIAZEPINES Negative (Negative); COCAINE Negative (Negative); METHADONE Negative (Negative); OPIATES Negative (Negative); PCP Negative (Negative)
--- NOTE | 2019-07-06 06:58 | NUR ---
END OF SHIFT SUMMARY: Pt has remained stable overnight. Neuro status unchanged; pupils 3-4 and DELICIA with brisk response, GCS = 15. No nausea, vomitting. Mild headache this a.m. but relieved with [place]. Still c/o of shoulder pain but that has also improved since beginning of shift. Monitor remains sinus rhythm; VS stable; voiding without difficulty.
--- NOTE | 2019-07-06 08:27 | NUR ---
0710-ASSUMMED CARE OF PT.TO CAT SCAN FULLY MONITOTED VIA BED.--VW 0825-MED FOR C/O BILAT SHOULDER PAIN,10/10 ON SCALE, & [place] 7/10 ON SCALE. PT STATES HE SMOKES THC ALMOST DAILY,LAST TIME 2-3 DAYS AGO.STATES LAST METH USE WAS 2-3 WEEKS AGO. NO RECALL OF EVENTS YESTERDAY.WOKE UP IN AMBULANCE.SETTLED FOR NAP.--VW
--- NOTE | 2019-07-06 10:49 | NUR ---
NEPHEWS AT BEDSIDE.INSTRUCTED TO KEEP VISIT SHORT. IN TO SEE.--VW
--- NOTE | 2019-07-06 11:13 | NUR ---
photophobia worse. med w morphine since hydrocodne not effective in controlling pain.no changes otherwise in neuro checks. lights off,room quiet. in.--vw
--- NOTE | 2019-07-06 11:43 | EKG ---
[place] [address] [facility] [place] [address] ELECTROCARDIOGRAM REPORT Name: NORMADOMINGA Room #: 247-P ADM IN M.R.#: [id number] Admission: 07/05/19 Attend Phys: Salvador Braga MD Discharge: Date of : 64 Report #: [id number] THIS REPORT FOR: //name// [facility] ED Test Date: 2019-07-05 Test Time: 12:41:26 Pat Name: DOMINGA GREEN Department: Room: [facility] Gender: M Kettle Loader: LOIDA : 1960 Requested By: Darío Malik Order Number: [id number] MD: Tad Calle Measurements Intervals [place] Rate: 80 P: 66 RI: 135 QRS: -27 QRSD: 100 T: 58 QT: 394 QTc: 455 Interpretive Statements Sinus rhythm Borderline left axis deviation RSR' in V1 or V2, probably normal variant Nonspecific ST segment abnormalities No previous ECG available for comparison Electronically Signed On 07-06-2019 11:43:23 CDT by Tad Calle [email or web address] <ELECTRONICALLY SIGNED> By: Tad Calle MD 07/06/19 1143 D: [id number] Tad Calle MD /BINU
--- NOTE | 2019-07-06 12:24 | NUR ---
PT DOES NOT WANT NEPHEWS VISITING AGAIN. ALSO NO INFORMATION TO BE GIVEN TO THEM.SECURITY CALLED & NEPHEWS ESCORTED OFF PROPERTY.FOUND SITTING IN PT'S TRUCK, AGAINST PT'S WISHES. PT HAS TILLMAN TO HIS TRUCK. IN.OK TO D/C HOME.CALL TO FOR DISCHARGE INSTRUCTIONS.--VW
--- NOTE | 2019-07-06 12:47 | NUR ---
PAGE TO RE:DISCHARGE OF PT.--VW
--- NOTE | 2019-07-06 12:49 | NUR ---
OK PER FOR PT TO BE DISCHARGED, BUT UP TO . PAGE TO .--VW
--- NOTE | 2019-07-06 12:53 | NUR ---
RETURNED PHONE CALL.IT WILL BE A FEW HRS B/4 HE CAN DISCHARGE PT. PT INFORMED.SECURITY UP TO SPEAK W PT.--VW
--- NOTE | 2019-07-06 13:16 | NUR ---
FINALLY ASLEEP.ALLOWED TO SLEEP W/O INTERRUPTION.--VW
--- NOTE | 2019-07-06 16:49 | NUR ---
1620-DISCHARGE INSTRUCTIONS GIVEN.PHOTO'S OF RT FOOT WOUNDS DONE.PT DISCH W PAINTER TUMBLING BARREL PER HIS REQUEST TO HIS TRUCK.OK'D TO DRIVE PER .--VW
[2019-07-07 01:05] LABS: GLYCOHEMOGLOBIN (HGB A1C) 9.3 % (4.8-5.6)
--- NOTE | 2019-07-07 10:34 | HC ---
[facility] [place] [address] CONSULTATION Name: DOMINGA GREEN Room #: 247-P [facility] IN M.R.#: [id number] Admission: 07/05/19 Attend Phys: Salvador Braga MD Discharge: 07/06/19 Date of : 64 Report #: [id number] THIS REPORT FOR: //name// CC: FAM unknown Salvador Braga REASON FOR CONSULTATION: Subdural hematoma. HISTORY OF PRESENT ILLNESS: The patient is a pleasant 59-year-old man who fell and struck the back of his head. He relates that he does not recall the fall in any detail. He says that he has had problems with hypotension. At this time, he denies any problem with headache. He denies any problems with numbness or weakness in upper and lower extremities. PAST MEDICAL HISTORY: Plantar foot ulcer, status post total resection last year, history of CVA, history of pancreatitis, hypertension, history of peripheral neuropathy. CURRENT MEDICATIONS: Insulin. ALLERGIES: PROCAINE. SOCIAL HISTORY: He does smoke. He does not use alcohol. He denies use of recreational drugs. REVIEW OF SYSTEMS: A 12-point was performed and was negative. PHYSICAL EXAMINATION: GENERAL: He is pleasant, alert and cooperative. He follows commands briskly. His speech was clear. HEENT: He was normocephalic. There was a small abrasion in the occipital region in the midline. NEUROLOGIC: I felt that his strength was 5/5 in upper and lower extremities bilaterally. On sensory examination, he was intact to light touch in the lower extremities bilaterally except for slight decrease in light touch involving both of his feet. His reflexes were absent throughout. There was full range of motion of upper and lower extremities bilaterally. LABORATORY DATA: I reviewed CT scans of the head at the time of admission and at this time, there is a high interhemispheric small focal collection of blood, which is consistent with a focal subdural hemorrhage adjacent to the falx and no other significant abnormality was detected. There was no change between the 2 scans. At this point, from my standpoint, it is safe for the patient to be discharged at least from the aspect of his intracerebral hemorrhage. He will need a followup scan in about [address] [address] CONSULTATION Name: DOMINGA GREEN Room #: 247-P [facility] IN [facility].#: [id number] Admission: 07/05/19 Attend Phys: Salvador Braga MD Discharge: 07/06/19 Date of : 64 Report #: [id number] I appreciate very much for asking us to see him. <ELECTRONICALLY SIGNED> By: Omar Brown MD 07/07/19 1034 [id number] Omar Brown MD /nt
== END 2019-07-06 16:20 | disposition home or self-care (01) | DRG 83 ==
LOC: ER 11:19 → EROBS 15:45 → ICU 17:25
PROVIDERS: Emergency Medicine; Nurse Practitioner Acute Care; ADMIT Surgery
DX: S06.5X9A Traumatic subdural hemorrhage with loss of consciousness of unspecified duration, initial encounter (principal); N17.9 Acute kidney failure, unspecified; W19.XXXA Unspecified fall, initial encounter; I48.91 Unspecified atrial fibrillation; I10 Essential (primary) hypertension; E78.5 Hyperlipidemia, unspecified; J44.9 Chronic obstructive pulmonary disease, unspecified; F17.210 Nicotine dependence, cigarettes, uncomplicated; E11.42 Type 2 diabetes mellitus with diabetic polyneuropathy; Y93.89 Activity, other specified; Y92.89 Other specified places as the place of occurrence of the external cause; Y99.8 Other external cause status; Z59.0 Homelessness; Z79.899 Other long term (current) drug therapy; Z88.4 Allergy status to anesthetic agent; Z79.4 Long term (current) use of insulin; Z82.49 Family history of ischemic heart disease and other diseases of the circulatory system; Z89.422 Acquired absence of other left toe(s)
CPT/HCPCS: 10203